=== PATIENT | male | born 1950 | race Caucasian/White ===

== ENCOUNTER → 2019-08-06 13:37 | Outpatient (CLI) | payer MEDICARE, OTHER, SELFPAY ==
[2019-08-06 14:21] LABS: Influenza A - CEPHEID Flu A NEGATIVE (NEGATIVE); Influenza B - CEPHEID Flu B NEGATIVE (NEGATIVE)
== END ==
PROVIDERS: Visit Provider Physician Assistant
DX: R05 Cough (principal)
CPT/HCPCS: 87502

== ENCOUNTER → 2021-04-26 16:31 | Outpatient (CLI) | payer MEDICARE, OTHER, SELFPAY ==
--- NOTE | 2021-04-26 16:38 | DI.RAD.S_ITS ---
PROCEDURE: XR HIP W PEL IF DONE RT 2V INDICATIONS: Right hip pain after accident TECHNIQUE: AP pelvis with lateral view(s) of the right hip(s). COMPARISON: None. FINDINGS: Bones: No fractures or dislocations. Pelvic ring appears intact. No suspicious bony lesions. Mild bilateral degenerative hip joint space narrowing. Minimal periarticular osteophytes are present. There is a small ossification adjacent to the lateral right acetabulum. Soft tissues: The visualized bowel gas pattern is normal. No suspicious soft tissue calcifications. IMPRESSION: Degenerative changes of the hips bilaterally. Small ossification is present adjacent to the right lateral acetabulum. This could represent trauma of indeterminate age or detached degenerative osteophyte. Recommend correlation to point tenderness. Dictated by: Millie Zabala M.D. on 04/26/2021 at 20:41 Approved by: Millie Zabala M.D. on 04/26/2021 at 20:42
== END ==
PROVIDERS: PCP Student in an Organized Health Care Education/Training Program; Referring Provider Student in an Organized Health Care Education/Training Program; Visit Provider Student in an Organized Health Care Education/Training Program
DX: M25.551 Pain in right hip (principal); G89.29 Other chronic pain
CPT/HCPCS: 73502

== ENCOUNTER → 2021-05-10 14:57 | Outpatient (CLI) | payer MEDICARE, OTHER, SELFPAY ==
[2021-05-10 15:48] LABS: Hematocrit 41.9 % (41-53); Hemoglobin 14.1 g/dL (13.5-17.5); Mean Corpuscular HGB Conc 33.7 % (30-36); Mean Corpuscular Hemoglobin 29.2 PG (26-34); Mean Corpuscular Volume 86.6 fL (80-100); Platelet Count 210 X10^3/uL (150-400); Red Blood Cell Count 4.84 X10^6/uL (4.5-5.9); Red Cell Distribution Width 14.2 % (11.6-14.8); White Blood Cell Count 5.2 X10^3/uL (4.5-11.0)
[2021-05-10 16:04] LABS: Appearance Urine UA CLEAR; Bilirubin Urine UA NEGATIVE (NEGATIVE); Color Urine UA YELLOW; Glucose Urine UA NEGATIVE (Negative); Ketones Urine UA NEGATIVE (NEGATIVE); Leukocyte Esterase Urine UA NEGATIVE (NEGATIVE); Nitrite Urine UA NEGATIVE (Negative); Occult Blood Urine UA NEGATIVE (Negative); Protein Urine UA NEGATIVE (Negative)
[2021-05-10 16:05] LABS: Bacteria Urine None Seen; RBC Urine None Seen (0-5/HPF); WBC Urine None Seen (0-5/HPF)
[2021-05-10 16:40] LABS: Prostate Specific Antigen Scrn 0.688 ng/mL (0.1-4.0)
== END ==
PROVIDERS: PCP Student in an Organized Health Care Education/Training Program; Referring Provider Student in an Organized Health Care Education/Training Program; Visit Provider Student in an Organized Health Care Education/Training Program
DX: R31.9 Hematuria, unspecified (principal); Z12.5 Encounter for screening for malignant neoplasm of prostate; D50.0 Iron deficiency anemia secondary to blood loss (chronic)
CPT/HCPCS: 36415; 81001; 85027; G0103

== ENCOUNTER → 2021-06-07 10:05 | Outpatient (CLI) | payer MEDICARE, OTHER, SELFPAY ==
[2021-06-07 11:33] LABS: COVID19 -Nasal RAPID Negative (Negative)
== END ==
PROVIDERS: PCP Student in an Organized Health Care Education/Training Program; Visit Provider Surgery
DX: Z20.822 Contact with and (suspected) exposure to COVID-19 (principal); Z01.812 Encounter for preprocedural laboratory examination
CPT/HCPCS: 87635; C9803

== ENCOUNTER 2021-06-08 07:38 | Day surgery (SDC) | payer MEDICARE, OTHER, SELFPAY ==
[2021-06-08 08:09] VITALS: BP 137/86; PULSE 62; RESP 20; TEMP 36.7; O2SAT 96; BMI 35.5
[2021-06-08] MEDS: LACTATED RINGERS 1,000 ML 125 ML IV (08:32)
--- NOTE | 2021-06-08 08:54 | PM.PREOP ---
Pre-operative Note COVID-19 COVID-19 status: Negative Result date/Date tested (Pos, Neg/Pending): 06/07/21 Interval Note History & Physical reviewed/Exam performed by Physician: Yes Changes to H&P: No ASA Class (for procedural sedation): II
[2021-06-08] MEDS: MIDAZOLAM 5 MG/5 ML VIAL IV (09:17)
[2021-06-08] MEDS: fentaNYL 250 MCG/5 ML INJ IV (09:17)
--- NOTE | 2021-06-08 09:40 | PM.OP.COLON ---
Operative Date/Time/Diagnoses Date of procedure: 06/08/21 Time of procedure: 09:41 Pre-op diagnosis: Rectal bleeding Post-op diagnosis: other (Diverticulosis) Procedure & Clinicians Study performed: Colonoscopy Same procedure as scheduled: Yes Indications: Rectal bleeding Surgeon: Julio C Malone Procedure Notes SCOAP/Timeout: Performed Procedure in detail: Impression: The patient was brought to the endoscopy suite, placed in left lateral decubitus position. The patient was connected to monitoring devices. A time-out was performed. Sedation was administered with Versed and fentanyl. Once the patient was adequately sedated, a digital rectal exam was performed and was normal. The scope was then inserted and advanced to the cecum where the appendiceal orifice was identified and photographed. The scope was then slowly withdrawn over greater than 6 minutes. Mucosa was thoroughly inspected. There were was pandiverticulosis with significant sigmoid diverticulosis. No polyps are noted. The scope was retroflexed in the rectum. Internal hemorrhoids were noted. The scope was straightened and removed. The patient was awakened and brought to recovery. EBL: 0 Sedation time 40 minutes. A total of 8 mg of Versed and 100 micro g of fentanyl was given. Scope withdrawal time: Greater than 6 minutes Sedation minutes: 40 Findings: divertiulosis Specimen(s): none sent Complications: none Post-procedure Recommendations: Colonoscopy in 10 years Disposition: PACU
[2021-06-08 09:42] VITALS: BP 143/77; PULSE 59; RESP 16; TEMP 36.6; O2SAT 94
[2021-06-08 09:46] VITALS: BP 139/87; PULSE 58; RESP 16; O2SAT 94
[2021-06-08 10:07] VITALS: BP 151/86; PULSE 55; RESP 14; TEMP 36.6; O2SAT 97
--- NOTE | 2021-06-08 10:18 | SUR.PHASEII ---
Ride called, initially not ready, returned call, pt ready to go, belly soft no nausea, steady when up. Left unit in stable condition.
== END 2021-06-08 10:20 | disposition home or self-care (01) ==
PROVIDERS: PCP Student in an Organized Health Care Education/Training Program; Referring Provider Surgery; Visit Provider Surgery
PROC: 0DJD8ZZ Inspection of Lower Intestinal Tract, Via Natural or Artificial Opening Endoscopic (ICD-10-PCS; CPT 45378; principal; 2021-06-08 08:45)
DX: K62.5 Hemorrhage of anus and rectum (principal); K57.30 Diverticulosis of large intestine without perforation or abscess without bleeding; K64.8 Other hemorrhoids
CPT/HCPCS: 45378; 99152; 99153; J2250; J3010

== ENCOUNTER → 2022-01-22 11:15 | Outpatient (CLI) | payer MEDICARE, OTHER, SELFPAY ==
[2022-01-22 12:31] LABS: Hematocrit 43.4 % (41-53); Hemoglobin 15.3 g/dL (13.5-17.5); Mean Corpuscular HGB Conc 35.2 % (30-36); Mean Corpuscular Hemoglobin 30.3 PG (26-34); Mean Corpuscular Volume 86.1 fL (80-100); Platelet Count 238 X10^3/uL (150-400); Red Blood Cell Count 5.03 X10^6/uL (4.5-5.9); Red Cell Distribution Width 13.2 % (11.6-14.8); White Blood Cell Count 4.9 X10^3/uL (4.5-11.0)
[2022-01-22 12:41] LABS: BUN Creatinine Ratio 25.3 (6-22); Blood Urea Nitrogen 21 mg/dL (9-20); Calcium 8.7 mg/dL (8.4-10.2); Carbon Dioxide 31 mmol/L (22-32); Chloride 103 mmol/L (98-107); Estimated Glomerular Filt Rate > 60 mL/min (>60); Glucose 100 mg/dL (80-110); HEMOLYSIS < 15 (0-50); Potassium 3.6 mmol/L (3.4-5.1); Sodium 140 mmol/L (137-145)
[2022-01-22 12:59] LABS: Vitamin D 25 Hydroxy (D3) 46.5 ng/mL (30.0-100.0)
== END ==
PROVIDERS: PCP Student in an Organized Health Care Education/Training Program; Referring Provider Student in an Organized Health Care Education/Training Program; Visit Provider Student in an Organized Health Care Education/Training Program
DX: I10 Essential (primary) hypertension (principal); E55.9 Vitamin D deficiency, unspecified; K62.5 Hemorrhage of anus and rectum
CPT/HCPCS: 36415; 80048; 82306; 85027

== ENCOUNTER → 2022-02-08 13:25 | Outpatient (CLI) | payer MEDICARE, OTHER, SELFPAY ==
[2022-02-09 03:26] LABS: Prostate Specific Antigen Scrn 0.773 ng/mL (0.1-4.0)
== END ==
PROVIDERS: PCP Student in an Organized Health Care Education/Training Program; Referring Provider Student in an Organized Health Care Education/Training Program; Visit Provider Student in an Organized Health Care Education/Training Program
DX: Z12.5 Encounter for screening for malignant neoplasm of prostate (principal); R35.0 Frequency of micturition
CPT/HCPCS: 36415; G0103

== ENCOUNTER → 2022-02-12 15:07 | Outpatient (CLI) | payer MEDICARE, OTHER, SELFPAY | PROVIDERS: PCP Student in an Organized Health Care Education/Training Program; Visit Provider Nurse Practitioner Family | DX: R30.0 Dysuria (principal) | CPT/HCPCS: 87077; 87086; 87186 ==

== ENCOUNTER → 2022-02-27 15:02 | Outpatient (CLI) | payer MEDICARE, OTHER, SELFPAY ==
[2022-02-27 17:52] LABS: Glucose Urine UA TRACE g/dL (Negative); Ketones Urine UA NEGATIVE (NEGATIVE); Leukocyte Esterase Urine UA 3+ (NEGATIVE); Nitrite Urine UA NEGATIVE (Negative); Occult Blood Urine UA 3+ (Negative); Protein Urine UA 2+ (Negative); Specific Gravity Urine UA 1.015 (1.000-1.035)
[2022-02-27 17:53] LABS: Appearance Urine UA CLOUDY; Color Urine UA ORANGE
[2022-02-27 18:04] LABS: Bilirubin Urine UA Negative (NEGATIVE); Ictotest Urine Negative (Negative)
[2022-02-27 18:05] LABS: Bacteria Urine Many (>30); Culture Indicated Urine Specimen Cultured; RBC Urine 5-10/HPF (0-5/HPF); Squamous Epithelial Cell Urine 0-1 /HPF (0-5/HPF); WBC Urine >100/HPF (0-5/HPF)
== END ==
PROVIDERS: PCP Student in an Organized Health Care Education/Training Program; Referring Provider Student in an Organized Health Care Education/Training Program; Visit Provider Student in an Organized Health Care Education/Training Program
DX: R31.9 Hematuria, unspecified (principal); R35.0 Frequency of micturition
CPT/HCPCS: 81001; 87077; 87086; 87186

== ENCOUNTER → 2022-11-12 14:32 | Outpatient (CLI) | payer MEDICARE, OTHER, SELFPAY ==
[2022-11-12 14:47] LABS: Appearance Urine UA CLEAR; Bilirubin Urine UA NEGATIVE (NEGATIVE); Color Urine UA YELLOW; Glucose Urine UA NEGATIVE (Negative); Ketones Urine UA NEGATIVE (NEGATIVE); Leukocyte Esterase Urine UA 1+ (NEGATIVE); Nitrite Urine UA NEGATIVE (Negative); Occult Blood Urine UA NEGATIVE (Negative); Protein Urine UA NEGATIVE (Negative); Specific Gravity Urine UA 1.015 (1.000-1.035)
[2022-11-12 14:49] LABS: Bacteria Urine None Seen; Culture Indicated Urine Specimen Cultured; RBC Urine None Seen (0-5/HPF); Squamous Epithelial Cell Urine 0-1 /HPF (0-5/HPF); WBC Urine 5-10/HPF (0-5/HPF)
== END ==
PROVIDERS: PCP Student in an Organized Health Care Education/Training Program; Referring Provider Student in an Organized Health Care Education/Training Program; Visit Provider Student in an Organized Health Care Education/Training Program
DX: R39.9 Unspecified symptoms and signs involving the genitourinary system (principal)
CPT/HCPCS: 81001; 87077; 87086; 87186

== ENCOUNTER → 2022-12-19 10:15 | Outpatient (CLI) | payer MEDICARE, OTHER, SELFPAY ==
[2022-12-19 11:13] LABS: Add Manual Diff / Slide Review NO; Basophils Absolute Auto 0 /uL (0-100); Basophils Percent Auto 0.8 % (0-2); Eosinophils Absolute Auto 300 /uL (0-450); Eosinophils Percent Auto 5.7 % (2-4); Hemoglobin 13.9 g/dL (13.5-17.5); Lymphocytes Absolute Auto 1400 /uL (1100-4500); Lymphocytes Percent Auto 30.4 % (25-40); Mean Corpuscular HGB Conc 34.8 % (30-36); Mean Corpuscular Hemoglobin 30.3 PG (26-34); Mean Corpuscular Volume 86.8 fL (80-100); Monocytes Absolute Auto 300 /uL (0-900); Monocytes Percent Auto 6.8 % (3-14); Neutrophils Absolute Auto 2600 /uL (1500-7000); Neutrophils Percent Auto 56.3 % (50-75); Platelet Count 193 X10^3/uL (150-400); Red Blood Cell Count 4.61 X10^6/uL (4.5-5.9); White Blood Cell Count 4.5 X10^3/uL (4.5-11.0)
[2022-12-19 11:41] LABS: Alanine Aminotransferase 26 IU/L (<50); Albumin Globulin Ratio 1.3 (1.0-2.8); Alkaline Phosphatase 111 U/L (38-126); Aspartate Aminotransferase 22 IU/L (17-59); BUN Creatinine Ratio 23.5 (6-22); Bilirubin Total 0.6 mg/dL (0.2-1.3); Blood Urea Nitrogen 19 mg/dL (9-20); Calcium 8.7 mg/dL (8.4-10.2); Carbon Dioxide 32 mmol/L (22-32); Chloride 101 mmol/L (98-107); Cholesterol 142 mg/dL (140-199); Estimated Glomerular Filt Rate > 60 mL/min (>60); Globulin 3.1 g/dL (1.7-4.1); Glucose 106 mg/dL (80-110); HDL Cholesterol 40 mg/dL (40-60); HEMOLYSIS < 15 (0-50); LDL Cholesterol Calculated 84 mg/dL (<100); Potassium 3.6 mmol/L (3.4-5.1); Sodium 141 mmol/L (137-145); Total Protein 7.1 g/dL (6.3-8.2); Triglycerides 91 mg/dL (35-150)
[2022-12-19 12:09] LABS: Prostate Specific Antigen Scrn 0.901 ng/mL (0.1-4.0)
[2022-12-19 16:38] LABS: Hep C Virus Ab w/Reflex Quant NEGATIVE s/c (NEGATIVE)
== END ==
PROVIDERS: PCP Student in an Organized Health Care Education/Training Program; Referring Provider Student in an Organized Health Care Education/Training Program; Visit Provider Student in an Organized Health Care Education/Training Program
DX: D50.0 Iron deficiency anemia secondary to blood loss (chronic) (principal); E78.2 Mixed hyperlipidemia; Z12.5 Encounter for screening for malignant neoplasm of prostate; E55.9 Vitamin D deficiency, unspecified; I10 Essential (primary) hypertension; Z11.59 Encounter for screening for other viral diseases
CPT/HCPCS: 36415; 80053; 80061; 85025; 86803; G0103

== ENCOUNTER → 2023-01-14 13:49 | Outpatient (CLI) | payer MEDICARE, OTHER, SELFPAY ==
[2023-01-14 15:08] LABS: Appearance Urine UA CLEAR; Bilirubin Urine UA NEGATIVE (NEGATIVE); Color Urine UA YELLOW; Glucose Urine UA NEGATIVE (Negative); Ketones Urine UA NEGATIVE (NEGATIVE); Leukocyte Esterase Urine UA 1+ (NEGATIVE); Nitrite Urine UA NEGATIVE (Negative); Occult Blood Urine UA NEGATIVE (Negative); Protein Urine UA NEGATIVE (Negative)
[2023-01-14 15:15] LABS: TSH w/ Reflex to FT4 1.65 uIU/mL (0.47-4.68)
[2023-01-14 15:20] LABS: Prostate Specific Antigen Scrn 1.11 ng/mL (0.1-4.0)
[2023-01-14 15:24] LABS: Bacteria Urine Many (>30); Culture Indicated Urine Specimen Cultured; RBC Urine 0-1/HPF (0-5/HPF); Squamous Epithelial Cell Urine 0-1 /HPF (0-5/HPF); WBC Urine 10-30/HPF (0-5/HPF)
== END ==
PROVIDERS: PCP Pediatrics; Referring Provider Pediatrics; Visit Provider Pediatrics
DX: Z12.5 Encounter for screening for malignant neoplasm of prostate (principal); R35.0 Frequency of micturition; Z87.440 Personal history of urinary (tract) infections
CPT/HCPCS: 36415; 81001; 84443; 87077; 87086; 87186; G0103

== ENCOUNTER → 2023-02-21 17:09 | Outpatient (CLI) | payer MEDICARE, OTHER, SELFPAY ==
[2023-02-21 17:35] LABS: Appearance Urine UA CLEAR; Bilirubin Urine UA NEGATIVE (NEGATIVE); Color Urine UA YELLOW; Glucose Urine UA NEGATIVE (Negative); Ketones Urine UA NEGATIVE (NEGATIVE); Leukocyte Esterase Urine UA 1+ (NEGATIVE); Nitrite Urine UA NEGATIVE (Negative); Occult Blood Urine UA TRACE-INTACT (Negative); Protein Urine UA NEGATIVE (Negative)
[2023-02-21 17:56] LABS: Bacteria Urine Moderate (10-30); Culture Indicated Urine Specimen Cultured; RBC Urine 0-1/HPF (0-5/HPF); Squamous Epithelial Cell Urine 1-5 /HPF (0-5/HPF); WBC Urine 5-10/HPF (0-5/HPF)
== END ==
PROVIDERS: PCP Pediatrics; Referring Provider Pediatrics; Visit Provider Pediatrics
DX: R30.0 Dysuria (principal)
CPT/HCPCS: 81001; 87077; 87086; 87186

== ENCOUNTER → 2024-01-07 16:11 | Outpatient (CLI) | payer MEDICARE, OTHER, SELFPAY ==
[2024-01-07 21:35] LABS: Appearance Urine UA CLOUDY; Bilirubin Urine UA NEGATIVE (NEGATIVE); Color Urine UA YELLOW; Glucose Urine UA NEGATIVE (Negative); Ketones Urine UA NEGATIVE (NEGATIVE); Leukocyte Esterase Urine UA TRACE (NEGATIVE); Nitrite Urine UA NEGATIVE (Negative); Occult Blood Urine UA NEGATIVE (Negative); Protein Urine UA NEGATIVE (Negative); Specific Gravity Urine UA 1.015 (1.000-1.035)
[2024-01-07 21:46] LABS: Urine Volume 10mL (spun)
[2024-01-07 21:47] LABS: Bacteria Urine Moderate (10-30); Culture Indicated Urine Cult Not Indicated; RBC Urine None Seen (0-5/HPF); Squamous Epithelial Cell Urine 0-1 /HPF (0-5/HPF); WBC Urine 5-10/HPF (0-5/HPF)
== END ==
PROVIDERS: PCP Student in an Organized Health Care Education/Training Program; Visit Provider Student in an Organized Health Care Education/Training Program
DX: N39.0 Urinary tract infection, site not specified (principal)
CPT/HCPCS: 81001; 87077; 87086; 87186

== ENCOUNTER → 2024-02-20 09:51 | Outpatient (CLI) | payer MEDICARE, OTHER, SELFPAY | PROVIDERS: PCP Student in an Organized Health Care Education/Training Program; Referring Provider Urology; Visit Provider Urology | DX: R39.9 Unspecified symptoms and signs involving the genitourinary system (principal) | CPT/HCPCS: 87086 ==

== ENCOUNTER → 2024-02-20 12:04 | Outpatient (CLI) | payer MEDICARE, OTHER, SELFPAY ==
[2024-02-20 13:57] LABS: BUN Creatinine Ratio 28.4 (6-22); Blood Urea Nitrogen 29 mg/dL (9-20); Calcium 9.1 mg/dL (8.4-10.2); Carbon Dioxide 31 mmol/L (22-32); Chloride 103 mmol/L (98-107); Estimated Glomerular Filt Rate > 60 mL/min (>60); Glucose 91 mg/dL (80-110); HEMOLYSIS < 15 (0-50); Potassium 3.3 mmol/L (3.4-5.1); Sodium 143 mmol/L (137-145)
== END ==
PROVIDERS: PCP Student in an Organized Health Care Education/Training Program; Referring Provider Urology; Visit Provider Urology
DX: N39.0 Urinary tract infection, site not specified (principal); R39.9 Unspecified symptoms and signs involving the genitourinary system
CPT/HCPCS: 36415; 80048; 87086

== ENCOUNTER → 2024-02-24 09:51 | Outpatient (CLI) | payer MEDICARE, OTHER, SELFPAY ==
--- NOTE | 2024-02-24 | DI.CT.S_ITS ---
PROCEDURE: CT ABDOMEN PELVIS WO/W CON INDICATIONS: Urinary tract infection, site not specified TECHNIQUE: Optional 5 mm thick noncontrast images acquired from the diaphragm to the symphysis pubis. After the administration of intravenous contrast, 5 mm thick images acquired from the diaphragm to the symphysis pubis after a 10-minute delay. 2 mm thick coronal and sagittal reformats were then performed of the kidneys and ureters. For radiation dose reduction, the following was used: automated exposure control, adjustment of mA and/or kV according to patient size. COMPARISON: None. FINDINGS: Image quality: Diagnostic. Kidneys and Ureters: Both kidneys are normal in size, without hydronephrosis. Single, punctate, nonobstructing right-sided nephrolithiasis. No complex renal cystic lesions which require follow-up. No perinephric fat stranding. There is normal bilateral renal enhancement. Renal calyces appear normal in morphology when filled with contrast. Opacified portions of both ureters demonstrate normal caliber Bladder: Bladder wall thickness is normal. No calcified bladder stones. Submucosal fat deposition within the anterior bladder wall. OTHER: Lower chest: Unremarkable. Liver: No solid mass. Gallbladder: No radiopaque gallstones or wall thickening. Biliary ducts: No biliary dilation. Pancreas: No ductal dilation. Spleen: Size is within normal limits. Adrenal Glands: No adrenal nodules. Stomach and Bowel: Mild focal wall thickening of the sigmoid colon, in the presence of diverticula. Normal appendix. Peritoneum: No abnormal intraperitoneal fluid. No free air. Ventral Wall: Small umbilical hernia containing fat. Abdominal Nodes: No retroperitoneal or mesenteric adenopathy by size criteria. Vessels: Aorta and inferior vena cava are normal in size. PELVIS: Pelvic Organs: Unremarkable. Pelvic Nodes: No enlarged lymph nodes. Miscellaneous: Small left inguinal hernia containing fat. Bones: No aggressive osseous abnormality. Degenerative disc disease of the lumbar spine. IMPRESSION: Single, punctate, nonobstructing right-sided nephrolithiasis. No additional filling defects within the opacified renal collecting system or ureters. Chronic or subacute diverticulitis of the sigmoid colon. No evidence of perforation. Dictated by: Gian Lopez M.D. on 02/24/2024 at 13:55 Approved by: Gian Lopez M.D. on 02/24/2024 at 14:02
== END ==
PROVIDERS: PCP Student in an Organized Health Care Education/Training Program; Referring Provider Urology; Visit Provider Urology
DX: N39.0 Urinary tract infection, site not specified (principal); N20.0 Calculus of kidney; K57.30 Diverticulosis of large intestine without perforation or abscess without bleeding; K40.90 Unilateral inguinal hernia, without obstruction or gangrene, not specified as recurrent; K42.9 Umbilical hernia without obstruction or gangrene; M51.36 Other intervertebral disc degeneration, lumbar region
CPT/HCPCS: 74178; Q9967

== ENCOUNTER → 2024-03-02 15:20 | Outpatient (CLI) | payer MEDICARE, OTHER, SELFPAY | PROVIDERS: PCP Student in an Organized Health Care Education/Training Program; Visit Provider Urology | DX: N39.0 Urinary tract infection, site not specified (principal); N40.1 Benign prostatic hyperplasia with lower urinary tract symptoms; R39.9 Unspecified symptoms and signs involving the genitourinary system | CPT/HCPCS: 51798; 52000; 81002; 87086 ==

== ENCOUNTER → 2024-04-23 09:17 | Outpatient (CLI) | payer MEDICARE, OTHER, SELFPAY | PROVIDERS: PCP Student in an Organized Health Care Education/Training Program; Visit Provider Urology | DX: R39.9 Unspecified symptoms and signs involving the genitourinary system (principal) | CPT/HCPCS: 87077; 87086 ==

== ENCOUNTER → 2024-06-05 12:54 | Outpatient (CLI) | payer MEDICARE, OTHER, SELFPAY ==
[2024-06-05 14:47] LABS: Add Manual Diff / Slide Review NO; Basophils Absolute Auto 0 /uL (0-100); Basophils Percent Auto 0.9 % (0-2); Eosinophils Absolute Auto 100 /uL (0-450); Eosinophils Percent Auto 2.8 % (2-4); Hematocrit 42.2 % (41-53); Hemoglobin 14.6 g/dL (13.5-17.5); Lymphocytes Absolute Auto 1400 /uL (1100-4500); Lymphocytes Percent Auto 28.3 % (25-40); Mean Corpuscular HGB Conc 34.7 % (30-36); Mean Corpuscular Hemoglobin 29.8 PG (26-34); Monocytes Absolute Auto 300 /uL (0-900); Monocytes Percent Auto 7.1 % (3-14); Neutrophils Absolute Auto 2900 /uL (1500-7000); Neutrophils Percent Auto 60.9 % (50-75); Platelet Count 228 X10^3/uL (150-400); Red Blood Cell Count 4.91 X10^6/uL (4.5-5.9); Red Cell Distribution Width 15.3 % (11.6-14.8); White Blood Cell Count 4.8 X10^3/uL (4.5-11.0)
[2024-06-05 14:53] LABS: Hemoglobin A1C% w Est Avg Glu 5.2 % (4.0-6.0)
[2024-06-05 15:06] LABS: Alanine Aminotransferase 25 IU/L (<50); Albumin Globulin Ratio 1.2 (1.0-2.8); Alkaline Phosphatase 112 U/L (38-126); Aspartate Aminotransferase 23 IU/L (17-59); Bilirubin Total 0.9 mg/dL (0.2-1.3); Blood Urea Nitrogen 18 mg/dL (9-20); Calcium 9.2 mg/dL (8.4-10.2); Carbon Dioxide 34 mmol/L (22-32); Chloride 97 mmol/L (98-107); Cholesterol 130 mg/dL (140-199); Estimated Glomerular Filt Rate > 60 mL/min (>60); Globulin 3.3 g/dL (1.7-4.1); Glucose 98 mg/dL (80-110); HDL Cholesterol 34 mg/dL (40-60); HEMOLYSIS < 15 (0-50); LDL Cholesterol Calculated 77 mg/dL (<100); Magnesium 1.9 mg/dL (1.6-2.3); Potassium 3.3 mmol/L (3.4-5.1); Sodium 138 mmol/L (137-145); Total Protein 7.3 g/dL (6.3-8.2); Triglycerides 94 mg/dL (35-150)
[2024-06-05 15:36] LABS: TSH w/ Reflex to FT4 1.61 uIU/mL (0.47-4.68)
== END ==
PROVIDERS: PCP Student in an Organized Health Care Education/Training Program; Referring Provider Internal Medicine Cardiovascular Disease; Visit Provider Internal Medicine Cardiovascular Disease
DX: R55 Syncope and collapse (principal); Z13.1 Encounter for screening for diabetes mellitus; E78.5 Hyperlipidemia, unspecified; I10 Essential (primary) hypertension
CPT/HCPCS: 36415; 80053; 80061; 83036; 83735; 84443; 85025

== ENCOUNTER → 2024-07-17 13:34 | Outpatient (CLI) | payer MEDICARE, OTHER, SELFPAY ==
--- NOTE | 2024-07-17 15:01 | DI.ECHO.S_ITS ---
[facility] : : [address] : : [place] : : [id number] : : Phone: [phone] Echocardiogram Report + + :Name: LORI DOWNS III Study Date: 07/17/2024 Height: 74 in : :[facility] ReadingLocation: Weight: 252 lb : : Gender: Male BSA: 2.4 m2 : :: 1950 Age: 73 yrs BP: 177/105 mmHg: :Reason For Study: syncope : :Ordering Physician: MARBIN, : :JAZZ Miramontes Performed By: Lia Gee : :Referring: JAZZ ZAZUETA : + + Interpretation Summary Hypertension. There is mild concentric left ventricular hypertrophy. The ejection fraction is estimated to be 45-50%. There is hypokinesis of the distal anterior, distal anteroseptal, apical and distal inferolateral basilio. Grade II diastolic dysfunction. The left atrium is moderately dilated. The right ventricle is normal in size and function. There is mild mitral regurgitation. Pulmonary artery pressures cannot be estimated because of the lack of a measurable TR jet velocity but the IVC suggests a CVP of around 3 mmHg. The ascending aorta is mildly enlarged, 4.0 cm. Procedure: A two-dimensional transthoracic echocardiogram with color flow and Doppler was performed. The study quality was technically adequate. There is no prior echocardiogram noted for this patient. The patient was in sinus rhythm with heart rates between 57-68 bpm during the exam. Left Ventricle: The left ventricle is normal in size. There is mild concentric left ventricular hypertrophy. The ejection fraction is estimated to be 45-50%. There is hypokinesis of the distal anterior, distal anteroseptal, apical and distal inferolateral basilio. Diastolic parameters suggest a pseudonormalization pattern, consistent with probable elevated filling pressures. Right Ventricle: The right ventricle is normal in size and function. Atria: The left atrium is moderately dilated. Right atrial size is normal. The interatrial septum bows toward right atrium consistent with elevated left atrial pressure. Mitral Valve: The mitral valve leaflets appear mildly thickened, but open well. There is mild mitral annular calcification. There is no mitral valve stenosis. There is mild mitral regurgitation. Aortic Valve: The aortic valve is trileaflet. The aortic valve opens well. There is no aortic valve stenosis. There is trace aortic regurgitation. Tricuspid Valve: The tricuspid valve is normal. There is a trace or physiologic amount of tricuspid regurgitation. Pulmonary artery pressures cannot be estimated because of the lack of a measurable TR jet velocity but the IVC suggests a CVP of around 3 mmHg. Pulmonic Valve: The pulmonic valve is not well seen, but is grossly normal. There is a trace or physiologic amount of pulmonic regurgitation. Great Vessels: The aortic root is normal size. The ascending aorta is mildly enlarged. The aortic arch is normal in size. The pulmonary artery is normal size. The IVC is of normal diameter and collapses greater than 50% with a sniff. This suggests a low right atrial pressure of 3 mm Hg. Pericardium/ Pleura There is no pericardial effusion. MMode/2D Measurements & Calculations LVIDd: 5.1 cm LVOT diam: 2.3 cm LVIDs: 3.7 cm Ao root diam: 3.9 cm FS: 26.6 % asc Aorta Diam: 4.0 cm EPSS: 0.54 cm Ao Arch Diam (Prox Trans): 2.4 cm IVSd: 1.2 cm LVPWd: 1.2 cm LV chapman. diameter/BSA (cm/m^2): 2.1 LV sys. diameter/BSA (cm/m^2): 1.6 LA A2 area: 30.1 cm2 RA long axis: 5.5 cm LA A4 area: 31.0 cm2 RA area: 20.0 cm2 LA length (vol): 7.4 cm RA vol: 61.9 ml LA vol: 107.1 ml RA : 25.8 ml/m2 LA vol index: 44.7 ml/m2 IVC diam: 0.99 cm TAPSE: 3.0 cm Doppler Measurements & Calculations Ao V2 max: 122.4 cm/sec LVOT Max Kyle: 81.8 cm/sec Ao V2 mean: 82.0 cm/sec LV V1 max P.7 mmHg Ao max P.0 mmHg LV V1 VTI: 19.1 cm Ao mean P.1 mmHg RENZO(I,D): 2.8 cm2 Ao V2 VTI: 29.3 cm RENZO(V,D): 2.8 cm2 sev ratio: 0.65 RENZO indexed to BSA (cm^2/m^2): 1.2 MV E max kyle: 83.8 cm/sec TR max kyle: 215.2 cm/sec MV A max kyle: 67.9 cm/sec TR max P.5 mmHg MV E/A: 1.2 PA V2 max: 53.6 cm/sec Med Peak E' Kyle: 3.8 cm/sec PA V2 mean: 41.8 cm/sec E/E' med: 21.9 PA mean P.76 mmHg Lat Peak E' Kyle: 4.8 cm/sec PA pr(Accel): 22.5 mmHg E/E' lat: 17.3 E/e' average: 19.6 MV dec time: 0.22 sec MVA(VTI): 2.5 cm2 MV V2 mean: 57.7 cm/sec SV(LVOT): 81.0 ml MV mean P.5 mmHg MV V2 VTI: 31.8 cm Reading Physician:04:13 PM
--- NOTE | 2024-07-20 18:54 | DI.NM.S_ITS ---
DATE OF SERVICE: 07/17/2024 NUCLEAR CARDIOLOGY MYOCARDIAL PERFUSION STUDY PROCEDURE: Pharmacologic vasodilator stress and rest myocardial perfusion imaging with gating to assess ejection fraction and regional wall motion. ORDERING PROVIDER: Jazz Perez M.D. INDICATIONS: The patient is a 73-year-old male with a history of nausea, vomiting, and syncope and an abnormal ECG. CARDIAC STRESS: Per protocol, 0.4 mg of regadenoson was infused with a normal heart rate response to exercise although a somewhat blunted blood pressure response. With this, he developed minimal dyspnea but no chest discomfort. His resting ECG shows sinus rhythm with possible inferior Q-waves and nonspecific ST abnormalities in the anterolateral leads. With stress, there are no significant ST-segment shifts or arrhythmias. Per protocol, 24.5 millicuries of technetium-99m Myoview was injected and he was imaged 15 minutes later using a gated SPECT acquisition protocol. Three days prior while at rest, he had been injected with 27.0 millicuries of technetium-99m Myoview and was imaged 15 minutes later, again using a gated SPECT acquisition protocol. FINDINGS: 1. Raw data: There is fairly good myocardial tracer uptake. The lung/heart ratio is normal at 0.35 with a normal TID ratio of 0.87. 2. Quantitated gated SPECT: Post-stress ejection fraction is 59% with possible subtle hypokinesis at the base of the inferior and inferolateral wall but with normal contractility elsewhere. The resting ejection fraction is 64% with an identical contraction pattern and moderately increased left ventricular volumes with a resting end-diastolic volume of 153 mL. 3. Myocardial perfusion imaging: Post-stress supine images show a [id number] perfusion defect in the proximal and mid inferior wall in a pattern that could be consistent with diaphragmatic attenuation, although a subtle defect remains persistent in the proximal portion of the inferior wall on the prone images. The distal portion of the inferolateral wall appears normal on the prone images. The resting images show a similar perfusion pattern to that of the post-stress supine images at the base but with some improvement in the more distal portion of the inferior defect compared to the post-stress supine images. IMPRESSION: 1. Probable abnormal myocardial perfusion study. 2. Mild, predominantly fixed, but slightly reversible perfusion defect in the proximal to mid inferior wall that resolves distally on the prone images, suggesting some diaphragmatic attenuation but with a persistent defect in the proximal portion of the inferior wall, suggesting a possible true perfusion defect with a previous nontransmural infarction with possible mild sarai-infarct ischemia, but if present, the volume of ischemia is small. Diaphragmatic attenuation could also be responsible for the defects seen. 3. Moderately enlarged left ventricular volumes with preserved systolic function but with possible hypokinesis at the base of the inferior wall, consistent with previous infarction. 4. No angina or ECG evidence of ischemia with pharmacologic vasodilator stress. There were no arrhythmias. Duke Ledbetter III - KYE/sonia/JOSHUA doc#: [id number]/job#: [id number] dd: 07/20/2024 17:30:00 dt: 07/20/2024 18:07:00 DICTATING MD/COPIES TO: Thanh Piña MD; Jazz Perez M.D. COPIES MNE: ALIS;
== END ==
PROVIDERS: Family Provider Student in an Organized Health Care Education/Training Program; PCP Student in an Organized Health Care Education/Training Program; Referring Provider Internal Medicine Cardiovascular Disease; Visit Provider Internal Medicine Cardiovascular Disease
DX: I34.81 Nonrheumatic mitral (valve) annulus calcification (principal); I34.0 Nonrheumatic mitral (valve) insufficiency; R94.31 Abnormal electrocardiogram [ECG] [EKG]; R55 Syncope and collapse; I77.89 Other specified disorders of arteries and arterioles
CPT/HCPCS: 78452; 93017; 93306; A9502; J2785

== ENCOUNTER → 2024-07-31 09:46 | Outpatient (CLI) | payer MEDICARE, OTHER, SELFPAY ==
[2024-07-31 10:23] LABS: BUN Creatinine Ratio 21.7 (6-22); Blood Urea Nitrogen 26 mg/dL (9-20); Calcium 8.8 mg/dL (8.4-10.2); Carbon Dioxide 35 mmol/L (22-32); Chloride 102 mmol/L (98-107); Estimated Glomerular Filt Rate > 60 mL/min (>60); Glucose 106 mg/dL (80-110); HEMOLYSIS < 15 (0-50); Potassium 3.3 mmol/L (3.4-5.1); Sodium 138 mmol/L (137-145)
== END ==
PROVIDERS: Family Provider Student in an Organized Health Care Education/Training Program; PCP Student in an Organized Health Care Education/Training Program; Referring Provider Internal Medicine Cardiovascular Disease; Visit Provider Internal Medicine Cardiovascular Disease
DX: I10 Essential (primary) hypertension (principal)
CPT/HCPCS: 36415; 80048

== ENCOUNTER → 2024-08-06 15:23 | Outpatient (CLI) | payer MEDICARE, OTHER, SELFPAY ==
[2024-08-06 17:01] LABS: Appearance Urine UA CLEAR; Bilirubin Urine UA NEGATIVE (NEGATIVE); Color Urine UA YELLOW; Glucose Urine UA NEGATIVE (Negative); Ketones Urine UA NEGATIVE (NEGATIVE); Leukocyte Esterase Urine UA TRACE (NEGATIVE); Nitrite Urine UA NEGATIVE (Negative); Occult Blood Urine UA NEGATIVE (Negative); Protein Urine UA NEGATIVE (Negative); Specific Gravity Urine UA 1.025 (1.000-1.035); pH Urine UA 5.5 (4.5-8.0)
[2024-08-06 17:08] LABS: Bacteria Urine Few (2-10); RBC Urine 0-1/HPF (0-5/HPF); Squamous Epithelial Cell Urine 0-1 /HPF (0-5/HPF); Urine Volume 10mL (spun); WBC Urine 1-5/HPF (0-5/HPF)
[2024-08-06 17:09] LABS: Culture Indicated Urine Cult Not Indicated; Mucus Urine 1+ (Negative)
== END ==
PROVIDERS: Family Provider Student in an Organized Health Care Education/Training Program; PCP Student in an Organized Health Care Education/Training Program; Referring Provider Urology; Visit Provider Urology
DX: N30.01 Acute cystitis with hematuria (principal); N41.9 Inflammatory disease of prostate, unspecified; Z87.440 Personal history of urinary (tract) infections
CPT/HCPCS: 81001; 81002

== ENCOUNTER → 2024-09-14 11:07 | Outpatient (CLI) | payer MEDICARE, OTHER, SELFPAY ==
[2024-09-14 11:56] LABS: BUN Creatinine Ratio 19.8 (6-22); Blood Urea Nitrogen 20 mg/dL (9-20); Calcium 9.4 mg/dL (8.4-10.2); Carbon Dioxide 30 mmol/L (22-32); Chloride 102 mmol/L (98-107); Estimated Glomerular Filt Rate > 60 mL/min (>60); Glucose 95 mg/dL (80-110); HEMOLYSIS < 15 (0-50); Potassium 4.2 mmol/L (3.4-5.1); Sodium 139 mmol/L (137-145)
== END ==
PROVIDERS: Family Provider Student in an Organized Health Care Education/Training Program; PCP Student in an Organized Health Care Education/Training Program; Referring Provider Internal Medicine Cardiovascular Disease; Visit Provider Internal Medicine Cardiovascular Disease
DX: I10 Essential (primary) hypertension (principal)
CPT/HCPCS: 36415; 80048

== ENCOUNTER 2024-09-30 10:45 | Outpatient (RCR) | payer MEDICARE, OTHER, SELFPAY ==
--- NOTE | 2024-07-16 12:59 | PT.OIE ---
Current Diagnoses Benign paroxysmal vertigo, left ear (07/16/24) Dizziness and giddiness (07/16/24) Past Medical History (Last Updated 07/09/24 @ 13:32 by Stanley Guzman MD) Allergies (~1950) Asthma (~1950) Back disorder (~1993) Benign prostatic hyperplasia with lower urinary tract symptoms Cataracts, bilateral (~2018) Cervical spine disease (~1991) Chronic back pain (~1991) GERD (gastroesophageal reflux disease) (~1969) History of depression History of diverticulitis History of kidney stones History of recurrent urinary tract infection History of UTI Hx of chronic arthritis Hx of iron deficiency anemia Hx of skin cancer, basal cell Hypertension (~1968) Internal bleeding hemorrhoids Kidney stones (~2000) Migraines (~1991) Obesity (BMI 35.0-39.9 without comorbidity) Prostatitis PTSD (post-traumatic stress disorder) (~1969) Recurrent sinusitis (~1959) Recurrent urinary tract infection Rosacea (~1984) Secondhand smoke exposure Sigmoid diverticulosis Skin cancer (~2013) Sleep apnea (~1996) Spine pain, lumbar (~1991) Urinary frequency Vertigo (~2009) Past Surgical History (Last Updated 02/20/24 @ 09:39 by Christine Joiner RN) Anesthesia History of hip surgery (~2018) Hx of circumcision Hx of vasectomy Visit Care Team Role Provider Type Vicenta Chowdhury MD Attending Provider Physician Family Provider Primary Care Provider Referring Provider Specialty: Family Practice Obstetrics Address: [address] [place] [address] Email: [email or web address] Physical Therapy Initial Evaluation PT-OP-A Visit Information Start: 07/16/24 12:47 Freq: Status: Active Protocol: Document 07/16/24 10:45 DCW (Rec: 07/16/24 12:59 DCW [id number]) Out-Patient Physical Therapy Visit Information Visit Information Visit Type Initial Evaluation Visit Start Time 10:45 Visit Stop Time 11:30 Visit Number 1 Number of IMPREGNATING MACHINE OPERATOR Visits 0 Evaluation Information Evaluation Date 07/16/24 PT-OP-B Current Condition Start: 07/16/24 12:47 Freq: Status: Active Protocol: Document 07/16/24 10:45 DCW (Rec: 12/12/24 12:59 DCW [id number]) Current Condition History of Current Condition Onset Date 05/14/24 Current Complaints Positional dizziness History of Current Condition Pt is a 73 year old male complaining of a two month history of motion-induced vertigo, beginning following a fall off a stool which caused him to hit his head on the floor. Pt reports episodes last 30-60 seconds. Symptoms are provoked by bed mobility, looking up at stars, putting in eye drops, or quick head movements. Pt denies recent hearing changes, tinnitus, diplopia, dysarthria, discoordination, or decreased mentation/consciousness. Pt reports symptoms are waxing/ waning in nature. Pt denies hx of hyperlipidemia, diabetes, arrhythmia, seizure, migraines , back/neck problems, CVA, anxiety/panic disorders, depression, or excessive smoking or drinking. Treatment Goals Patient/Caregiver Goals eliminate dizziness PT-OP-C Subjective Start: 07/16/24 12:47 Freq: Status: Active Protocol: Document 07/16/24 10:45 DCW (Rec: 07/16/24 12:59 DCW [id number]) OP-PT Subjective Patient Comments Patient Comments I can't even look up at the stars anymore. Patient Questionnaires Dizziness Handicap Inventory DHI Score 80% DHI Functional Impairment 80 to 99% Impaired (Score 80- 99) Other Questionnaire Name and Score Falls Efficacy Scale - International: 42/64 PT-OP-O Vestibular Start: 07/16/24 12:47 Freq: Status: Active Protocol: Document 07/16/24 10:45 DCW (Rec: 07/16/24 12:59 DCW [id number]) Vestibular Assessment Auditory Tests Blanco Test Lateralizes right Rinne Test Positive Air Conduction Results Right Greater Visual Testing Smooth Pursuits Horizontal WNL Smooth Pursuits Vertical WNL Saccades Horizontal Mild corrective saccade when moving L Heave Test Positive Bilateral Thrust Head Positive Bilateral Positional Testing Tres-Hallpike Positive Left,Upbeating,< 60 Seconds PT-OP-Q Treatments Start: 07/16/24 12:47 Freq: Status: Active Protocol: Document 07/16/24 10:45 DCW (Rec: 07/16/24 12:59 DCW [id number]) Canalithic Repositioning BPPV Treatment Rikki Affected Canal(s) Left posterior Reps x2 Comments Modified Rikki PT-OP-T Assessment and Plan Start: 07/16/24 12:47 Freq: Status: Active Protocol: Document 07/16/24 10:45 DCW (Rec: 07/16/24 12:59 DCW [id number]) Physical Therapy Assessment Rehab Potential Rehabilitation Potential Excellent Evaluation Complexity Number of Personal Factors/Comorbidities 3 or More Number of Body Systems Impaired 4 or More Clinical Presentation at Evaluation Unstable Impairments Impairments Balance,Functional Activities, Functional Mobility,Vestibular Goals Two Impairment Positive left Tres-Hallpike Lockstitch Zipper Setter Goal (LTG) Pt to present with negative positional testing bilaterally LTG Duration 08/16/24 One Impairment Pt experiences dizziness with positional changes Custodial Goal (LTG) Pt to report ability to perform bed mobility without vertiginous symptoms LTG Duration 08/16/24 Assessment Summary Assessment During left [place]-Hallpike test, pt complained of vertigo and demonstrated up-beating, torsional nystagmus lasting approximately 15 seconds, consistent with diagnosis of left-sided posterior canal BPPV, canalithiasis-type. Pt was treated with a left-sided modified Rikki maneuver. Pt complained of symptoms in the first and third position, which is normally indicative of a successful treatment. Further positional testing was negative. Pt was educated on BPPV, expectations for treatment, possible recurrence (BPPV has a ~50% recurrence rate in the five years following treatment), and post -Rikki restrictions. Pt to return in ~1 week for a follow -up appointment, and intermittently afterward as indicated for treatment of BPPV. Physical Therapy Plan Frequency and Duration Frequency of Treatment 2x/Week Plan of Care Start Date 07/16/24 Plan of Care End Date 08/16/24 Therapeutic Interventions Therapeutic Interventions Balance Training,Canalithic Repositioning,Vestibular Rehabilitation Next Visit Focus/Plan Next Note Type Treatment Note Next Visit Plan Positional testing, CRM as indicated
--- NOTE | 2024-07-16 13:00 | PT.OPPOC ---
Physical, Occupational & Speech Therapy At [facility] Current Diagnoses Benign paroxysmal vertigo, left ear (07/16/24) Dizziness and giddiness (07/16/24) Visit Care Team Role Provider Type Vicenta Chowdhury MD Attending Provider Physician Family Provider Primary Care Provider Referring Provider Specialty: Family Practice Obstetrics Address: [address] [place] [address], [place] Email: [email or web address] Plan Of Care PT-OP-B Current Condition Start: 07/16/24 12:47 Freq: Status: Active Protocol: Document 07/16/24 10:45 DCW (Rec: 07/16/24 12:59 DCW [id number]) Current Condition History of Current Condition Onset Date 05/14/24 Current Complaints Positional dizziness History of Current Condition Pt is a 73 year old male complaining of a two month history of motion-induced vertigo, beginning following a fall off a stool which caused him to hit his head on the floor. Pt reports episodes last 30-60 seconds. Symptoms are provoked by bed mobility, looking up at stars, putting in eye drops, or quick head movements. Pt denies recent hearing changes, tinnitus, diplopia, dysarthria, discoordination, or decreased mentation/consciousness. Pt reports symptoms are waxing/ waning in nature. Pt denies hx of hyperlipidemia, diabetes, arrhythmia, seizure, migraines , back/neck problems, CVA, anxiety/panic disorders, depression, or excessive smoking or drinking. Treatment Goals Patient/Caregiver Goals eliminate dizziness PT-OP-T Assessment and Plan Start: 07/16/24 12:47 Freq: Status: Active Protocol: Document 07/16/24 10:45 DCW (Rec: 07/16/24 12:59 DCW [id number]) Physical Therapy Assessment Rehab Potential Rehabilitation Potential Excellent Evaluation Complexity Number of Personal Factors/Comorbidities 3 or More Number of Body Systems Impaired 4 or More Clinical Presentation at Evaluation Unstable Impairments Impairments Balance,Functional Activities, Functional Mobility,Vestibular Goals Two Impairment Positive left Tres-Hallpike Teacher Education Instructor Goal (LTG) Pt to present with negative positional testing bilaterally LTG Duration 08/16/24 One Impairment Pt experiences dizziness with positional changes Mcc Goal (LTG) Pt to report ability to perform bed mobility without vertiginous symptoms LTG Duration 08/16/24 Assessment Summary Assessment During left [place]-Hallpike test, pt complained of vertigo and demonstrated up-beating, torsional nystagmus lasting approximately 15 seconds, consistent with diagnosis of left-sided posterior canal BPPV, canalithiasis-type. Pt was treated with a left-sided modified Rikki maneuver. Pt complained of symptoms in the first and third position, which is normally indicative of a successful treatment. Further positional testing was negative. Pt was educated on BPPV, expectations for treatment, possible recurrence (BPPV has a ~50% recurrence rate in the five years following treatment), and post -Rikki restrictions. Pt to return in ~1 week for a follow -up appointment, and intermittently afterward as indicated for treatment of BPPV. Physical Therapy Plan Frequency and Duration Frequency of Treatment 2x/Week Plan of Care Start Date 07/16/24 Plan of Care End Date 08/16/24 Therapeutic Interventions Therapeutic Interventions Balance Training,Canalithic Repositioning,Vestibular Rehabilitation Next Visit Focus/Plan Next Note Type Treatment Note Next Visit Plan Positional testing, CRM as indicated Plan of Care Dates Plan of Care Start Date 07/16/24 Plan of Care End Date 08/16/24 Electronically Signed by: Toribio Ellis, PT 07/16/24 1300 If you are in agreement with this Plan of Care, please return a signed and dated copy. I have reviewed this Plan of Care and certify that the skilled therapy services above are required to meet the patient?s needs. Physician Signature Date Printed Name and Credentials Clinical Instructor Signature Printed Name and Credentials
--- NOTE | 2024-07-31 10:55 | PT.OTN ---
Current Diagnoses Benign paroxysmal vertigo, left ear (07/31/24) Dizziness and giddiness (07/31/24) Physical Therapy Treatment Note PT-OP-A Visit Information Start: 07/16/24 12:47 Freq: Status: Active Protocol: Document 07/31/24 10:30 DCW (Rec: 07/31/24 10:55 DCW [id number]) Out-Patient Physical Therapy Visit Information Visit Information Visit Type Treatment Note Visit Start Time 10:30 Visit Stop Time 10:50 Visit Number 2 Number of CABLE DRILLER Visits 0 Evaluation Information Evaluation Date 07/16/24 PT-OP-B Current Condition Start: 07/16/24 12:47 Freq: Status: Active Protocol: Document 07/16/24 10:45 DCW (Rec: 07/16/24 12:59 DCW [id number]) Current Condition History of Current Condition Onset Date 05/14/24 Current Complaints Positional dizziness History of Current Condition Pt is a 73 year old male complaining of a two month history of motion-induced vertigo, beginning following a fall off a stool which caused him to hit his head on the floor. Pt reports episodes last 30-60 seconds. Symptoms are provoked by bed mobility, looking up at stars, putting in eye drops, or quick head movements. Pt denies recent hearing changes, tinnitus, diplopia, dysarthria, discoordination, or decreased mentation/consciousness. Pt reports symptoms are waxing/ waning in nature. Pt denies hx of hyperlipidemia, diabetes, arrhythmia, seizure, migraines , back/neck problems, CVA, anxiety/panic disorders, depression, or excessive smoking or drinking. Treatment Goals Patient/Caregiver Goals eliminate dizziness PT-OP-C Subjective Start: 07/16/24 12:47 Freq: Status: Active Protocol: Document 07/31/24 10:30 DCW (Rec: 07/31/24 10:55 DCW [id number]) OP-PT Subjective Patient Comments Patient Comments Pt notes that he thought it was gone, but seems like it has been coming back a bit. Still mildly symptomatic with positional changes and looking up. PT-OP-O Vestibular Start: 07/16/24 12:47 Freq: Status: Active Protocol: Document 07/31/24 10:30 DCW (Rec: 07/31/24 10:55 DCW [id number]) Vestibular Assessment Positional Testing [place]-Hallpike Positive Left,Upbeating,< 60 Seconds PT-OP-Q Treatments Start: 07/16/24 12:47 Freq: Status: Active Protocol: Document 07/31/24 10:30 DCW (Rec: 07/31/24 10:55 DCW [id number]) Canalithic Repositioning BPPV Treatment Rikki Affected Canal(s) Left posterior Reps x2 Comments Modified Rikki PT-OP-T Assessment and Plan Start: 07/16/24 12:47 Freq: Status: Active Protocol: Document 07/31/24 10:30 DCW (Rec: 07/31/24 10:55 DCW [id number]) Physical Therapy Assessment Impairments Impairments Balance,Functional Activities, Functional Mobility,Vestibular Goals Two Impairment Positive left [place]-Hallpike Biomass Facilitator Goal (LTG) Pt to present with negative positional testing bilaterally LTG Duration 08/16/24 One Impairment Pt experiences dizziness with positional changes Biomass Facilitator Goal (LTG) Pt to report ability to perform bed mobility without vertiginous symptoms LTG Duration 08/16/24 Assessment Summary Assessment Pt again presented with positive left [place]-Hallpike with up-beating, torsional nystagmus lasting approximately 15 seconds. Modified left-sided Rikki was performed x2. Further testing was negative. Physical Therapy Plan Frequency and Duration Frequency of Treatment 2x/Week Plan of Care Start Date 07/16/24 Plan of Care End Date 08/16/24 Therapeutic Interventions Therapeutic Interventions Balance Training,Canalithic Repositioning,Vestibular Rehabilitation Next Visit Focus/Plan Next Note Type Treatment Note Next Visit Plan Positional testing, CRM as indicated
--- NOTE | 2024-08-07 11:05 | PT.OTN ---
Current Diagnoses Benign paroxysmal vertigo, left ear (08/07/24) Dizziness and giddiness (08/07/24) Physical Therapy Treatment Note PT-OP-A Visit Information Start: 07/16/24 12:47 Freq: Status: Active Protocol: Document 08/07/24 10:35 DCW (Rec: 08/07/24 11:05 DCW [id number]) Out-Patient Physical Therapy Visit Information Visit Information Visit Type Treatment Note Visit Start Time 10:35 Visit Stop Time 11:00 Visit Number 3 Number of DIRECTOR OF EXHIBITS Visits 0 Evaluation Information Evaluation Date 07/16/24 PT-OP-B Current Condition Start: 07/16/24 12:47 Freq: Status: Active Protocol: Document 07/16/24 10:45 DCW (Rec: 07/16/24 12:59 DCW [id number]) Current Condition History of Current Condition Onset Date 05/14/24 Current Complaints Positional dizziness History of Current Condition Pt is a 73 year old male complaining of a two month history of motion-induced vertigo, beginning following a fall off a stool which caused him to hit his head on the floor. Pt reports episodes last 30-60 seconds. Symptoms are provoked by bed mobility, looking up at stars, putting in eye drops, or quick head movements. Pt denies recent hearing changes, tinnitus, diplopia, dysarthria, discoordination, or decreased mentation/consciousness. Pt reports symptoms are waxing/ waning in nature. Pt denies hx of hyperlipidemia, diabetes, arrhythmia, seizure, migraines , back/neck problems, CVA, anxiety/panic disorders, depression, or excessive smoking or drinking. Treatment Goals Patient/Caregiver Goals eliminate dizziness PT-OP-C Subjective Start: 07/16/24 12:47 Freq: Status: Active Protocol: Document 08/07/24 10:35 DCW (Rec: 08/07/24 11:05 DCW [id number]) OP-PT Subjective Patient Comments Patient Comments Much better, actually, but still slightly symptomatic. PT-OP-O Vestibular Start: 07/16/24 12:47 Freq: Status: Active Protocol: Document 08/07/24 10:35 DCW (Rec: 08/07/24 11:05 DCW [id number]) Vestibular Assessment Positional Testing [place]-Hallpike Positive Left,Upbeating,< 60 Seconds PT-OP-Q Treatments Start: 07/16/24 12:47 Freq: Status: Active Protocol: Document 08/07/24 10:35 DCW (Rec: 08/07/24 11:05 DCW [id number]) Manual Therapy Treatment Other Other Manual Treatments Positional testing Canalithic Repositioning BPPV Treatment Rikki Affected Canal(s) Left posterior Reps x2 Comments Modified Rikki PT-OP-T Assessment and Plan Start: 07/16/24 12:47 Freq: Status: Active Protocol: Document 08/07/24 10:35 DCW (Rec: 08/07/24 11:05 DCW [id number]) Physical Therapy Assessment Impairments Impairments Balance,Functional Activities, Functional Mobility,Vestibular Goals Two Impairment Positive left [place]-Hallpike [facility] Goal (LTG) Pt to present with negative positional testing bilaterally LTG Duration 08/16/24 One Impairment Pt experiences dizziness with positional changes [facility] Goal (LTG) Pt to report ability to perform bed mobility without vertiginous symptoms LTG Duration 08/16/24 Assessment Summary Assessment Pt left [place]-Hallpike once again positive, however exhibiting comparatively milder symptoms today compared to last two visits. Pt tolerated modified Rikki well, and further testing was negative. Pt will be out of town visiting his son for the next three weeks, instructed to schedule follow-up upon return, in case symptoms persist, however pt informed he can cancel if no longer experiencing positional vertigo. Physical Therapy Plan Frequency and Duration Frequency of Treatment 2x/Week Plan of Care Start Date 07/16/24 Plan of Care End Date 08/16/24 Therapeutic Interventions Therapeutic Interventions Balance Training,Canalithic Repositioning,Vestibular Rehabilitation Next Visit Focus/Plan Next Note Type Treatment Note Next Visit Plan Positional testing, CRM as indicated
--- NOTE | 2024-09-14 14:59 | PT.OTN ---
Current Diagnoses Benign paroxysmal vertigo, left ear (09/14/24) Dizziness and giddiness (09/14/24) Physical Therapy Treatment Note PT-OP-A Visit Information Start: 07/16/24 12:47 Freq: Status: Active Protocol: Document 09/14/24 14:30 DCW (Rec: 09/14/24 14:59 DCW [id number]) Out-Patient Physical Therapy Visit Information Visit Information Visit Type Treatment Note Visit Start Time 14:30 Visit Stop Time 14:48 Visit Number 4 Number of GLASS LAMINATING OPERATOR Visits 0 Evaluation Information Evaluation Date 07/16/24 PT-OP-B Current Condition Start: 07/16/24 12:47 Freq: Status: Active Protocol: Document 07/16/24 10:45 DCW (Rec: 07/16/24 12:59 DCW [id number]) Current Condition History of Current Condition Onset Date 05/14/24 Current Complaints Positional dizziness History of Current Condition Pt is a 73 year old male complaining of a two month history of motion-induced vertigo, beginning following a fall off a stool which caused him to hit his head on the floor. Pt reports episodes last 30-60 seconds. Symptoms are provoked by bed mobility, looking up at stars, putting in eye drops, or quick head movements. Pt denies recent hearing changes, tinnitus, diplopia, dysarthria, discoordination, or decreased mentation/consciousness. Pt reports symptoms are waxing/ waning in nature. Pt denies hx of hyperlipidemia, diabetes, arrhythmia, seizure, migraines , back/neck problems, CVA, anxiety/panic disorders, depression, or excessive smoking or drinking. Treatment Goals Patient/Caregiver Goals eliminate dizziness PT-OP-C Subjective Start: 07/16/24 12:47 Freq: Status: Active Protocol: Document 09/14/24 14:30 DCW (Rec: 09/14/24 14:59 DCW [id number]) OP-PT Subjective Patient Comments Patient Comments Pt notes his dizziness is so much better, but admits it is still there. PT-OP-O Vestibular Start: 07/16/24 12:47 Freq: Status: Active Protocol: Document 09/14/24 14:30 DCW (Rec: 09/14/24 14:59 DCW [id number]) Vestibular Assessment Positional Testing [place]-Hallpike Positive Left,Upbeating,< 60 Seconds PT-OP-Q Treatments Start: 07/16/24 12:47 Freq: Status: Active Protocol: Document 09/14/24 14:30 DCW (Rec: 09/14/24 14:59 DCW [id number]) Manual Therapy Treatment Other Other Manual Treatments Positional testing Canalithic Repositioning BPPV Treatment Rikki Affected Canal(s) Left posterior Reps x2 Comments Modified Rikki PT-OP-T Assessment and Plan Start: 07/16/24 12:47 Freq: Status: Active Protocol: Document 09/14/24 14:30 DCW (Rec: 09/14/24 14:59 DCW [id number]) Physical Therapy Assessment Impairments Impairments Balance,Functional Activities, Functional Mobility,Vestibular Goals Two Impairment Positive left [place]-Hallpike Ore Buyer Goal (LTG) Pt to present with negative positional testing bilaterally LTG Duration 08/16/24 One Impairment Pt experiences dizziness with positional changes [facility] Goal (LTG) Pt to report ability to perform bed mobility without vertiginous symptoms LTG Duration 08/16/24 Assessment Summary Assessment Pt again testing positive with left Tres-Hallpike, symptoms much less severe than prior sessions. Left-sided modified Rikki was performed with symptoms in the first and third position. Follow-up testing was negative. Physical Therapy Plan Frequency and Duration Frequency of Treatment 1-2x/week Plan of Care Start Date 09/14/24 Plan of Care End Date 10/12/24 Therapeutic Interventions Therapeutic Interventions Balance Training,Canalithic Repositioning,Vestibular Rehabilitation Next Visit Focus/Plan Next Note Type Treatment Note Next Visit Plan Positional testing, CRM as indicated
--- NOTE | 2024-09-14 15:01 | PT.OPPN ---
Current Diagnoses Benign paroxysmal vertigo, left ear (09/14/24) Dizziness and giddiness (09/14/24) Physical Therapy Progress Note PT-OP-A Visit Information Start: 07/16/24 12:47 Freq: Status: Active Protocol: Document 09/14/24 14:30 DCW (Rec: 09/14/24 14:59 DCW [id number]) Out-Patient Physical Therapy Visit Information Visit Information Visit Type Treatment Note Visit Start Time 14:30 Visit Stop Time 14:48 Visit Number 4 Number of DIGITAL FORENSIC EXAMINER Visits 0 Evaluation Information Evaluation Date 07/16/24 PT-OP-B Current Condition Start: 07/16/24 12:47 Freq: Status: Active Protocol: Document 07/16/24 10:45 DCW (Rec: 07/16/24 12:59 DCW [id number]) Current Condition History of Current Condition Onset Date 05/14/24 Current Complaints Positional dizziness History of Current Condition Pt is a 73 year old male complaining of a two month history of motion-induced vertigo, beginning following a fall off a stool which caused him to hit his head on the floor. Pt reports episodes last 30-60 seconds. Symptoms are provoked by bed mobility, looking up at stars, putting in eye drops, or quick head movements. Pt denies recent hearing changes, tinnitus, diplopia, dysarthria, discoordination, or decreased mentation/consciousness. Pt reports symptoms are waxing/ waning in nature. Pt denies hx of hyperlipidemia, diabetes, arrhythmia, seizure, migraines , back/neck problems, CVA, anxiety/panic disorders, depression, or excessive smoking or drinking. Treatment Goals Patient/Caregiver Goals eliminate dizziness PT-OP-C Subjective Start: 07/16/24 12:47 Freq: Status: Active Protocol: Document 09/14/24 14:30 DCW (Rec: 09/14/24 14:59 DCW [id number]) OP-PT Subjective Patient Comments Patient Comments Pt notes his dizziness is so much better, but admits it is still there. PT-OP-O Vestibular Start: 07/16/24 12:47 Freq: Status: Active Protocol: Document 09/14/24 14:30 DCW (Rec: 09/14/24 14:59 DCW [id number]) Vestibular Assessment Positional Testing [place]-Hallpike Positive Left,Upbeating,< 60 Seconds PT-OP-T Assessment and Plan Start: 07/16/24 12:47 Freq: Status: Active Protocol: Document 09/14/24 14:30 DCW (Rec: 09/14/24 14:59 DCW [id number]) Physical Therapy Assessment Impairments Impairments Balance,Functional Activities, Functional Mobility,Vestibular Goals Two Impairment Positive left Tres-Hallpike Window Caser Goal (LTG) Pt to present with negative positional testing bilaterally LTG Duration 08/16/24 One Impairment Pt experiences dizziness with positional changes Window Caser Goal (LTG) Pt to report ability to perform bed mobility without vertiginous symptoms LTG Duration 08/16/24 Assessment Summary Assessment Pt again testing positive with left Tres-Hallpike, symptoms much less severe than prior sessions. Left-sided modified Rikki was performed with symptoms in the first and third position. Follow-up testing was negative. Physical Therapy Plan Frequency and Duration Frequency of Treatment 1-2x/week Plan of Care Start Date 09/14/24 Plan of Care End Date 10/12/24 Therapeutic Interventions Therapeutic Interventions Balance Training,Canalithic Repositioning,Vestibular Rehabilitation Next Visit Focus/Plan Next Note Type Treatment Note Next Visit Plan Positional testing, CRM as indicated
--- NOTE | 2024-09-14 15:01 | PT.OPPOC ---
Physical, Occupational & Speech Therapy At [facility] Current Diagnoses Benign paroxysmal vertigo, left ear (09/14/24) Dizziness and giddiness (09/14/24) Visit Care Team Role Provider Type Vicenta Chowdhury MD Attending Provider Physician Family Provider Primary Care Provider Referring Provider Specialty: Family Practice Obstetrics Address: [address] [place] [address], [facility] Email: [email or web address] Plan Of Care PT-OP-B Current Condition Start: 07/16/24 12:47 Freq: Status: Active Protocol: Document 07/16/24 10:45 DCW (Rec: 07/16/24 12:59 DCW [id number]) Current Condition History of Current Condition Onset Date 05/14/24 Current Complaints Positional dizziness History of Current Condition Pt is a 73 year old male complaining of a two month history of motion-induced vertigo, beginning following a fall off a stool which caused him to hit his head on the floor. Pt reports episodes last 30-60 seconds. Symptoms are provoked by bed mobility, looking up at stars, putting in eye drops, or quick head movements. Pt denies recent hearing changes, tinnitus, diplopia, dysarthria, discoordination, or decreased mentation/consciousness. Pt reports symptoms are waxing/ waning in nature. Pt denies hx of hyperlipidemia, diabetes, arrhythmia, seizure, migraines , back/neck problems, CVA, anxiety/panic disorders, depression, or excessive smoking or drinking. Treatment Goals Patient/Caregiver Goals eliminate dizziness PT-OP-T Assessment and Plan Start: 07/16/24 12:47 Freq: Status: Active Protocol: Document 09/14/24 14:30 DCW (Rec: 09/14/24 14:59 DCW [id number]) Physical Therapy Assessment Impairments Impairments Balance,Functional Activities, Functional Mobility,Vestibular Goals Two Impairment Positive left [place]-Hallpike [facility] Goal (LTG) Pt to present with negative positional testing bilaterally LTG Duration 08/16/24 One Impairment Pt experiences dizziness with positional changes Curing Bin Operator Goal (LTG) Pt to report ability to perform bed mobility without vertiginous symptoms LTG Duration 08/16/24 Assessment Summary Assessment Pt again testing positive with left Tres-Hallpike, symptoms much less severe than prior sessions. Left-sided modified Rikki was performed with symptoms in the first and third position. Follow-up testing was negative. Physical Therapy Plan Frequency and Duration Frequency of Treatment 1-2x/week Plan of Care Start Date 09/14/24 Plan of Care End Date 10/12/24 Therapeutic Interventions Therapeutic Interventions Balance Training,Canalithic Repositioning,Vestibular Rehabilitation Next Visit Focus/Plan Next Note Type Treatment Note Next Visit Plan Positional testing, CRM as indicated Plan of Care Dates Plan of Care Start Date 09/14/24 Plan of Care End Date 10/12/24 Electronically Signed by: Toribio Ellis, PT 09/14/24 9831 If you are in agreement with this Plan of Care, please return a signed and dated copy. I have reviewed this Plan of Care and certify that the skilled therapy services above are required to meet the patient?s needs. Physician Signature Date Printed Name and Credentials Clinical Instructor Signature Printed Name and Credentials
--- NOTE | 2024-09-30 11:19 | PT.OTN ---
Current Diagnoses Benign paroxysmal vertigo, left ear (09/30/24) Dizziness and giddiness (09/30/24) Physical Therapy Treatment Note PT-OP-A Visit Information Start: 07/16/24 12:47 Freq: Status: Active Protocol: Document 09/30/24 10:45 DCW (Rec: 09/30/24 11:19 DCW [id number]) Out-Patient Physical Therapy Visit Information Visit Information Visit Type Discharge Summary Visit Start Time 10:45 Visit Stop Time 11:13 Visit Number 5 Number of NETWORK SYSTEMS INTEGRATOR Visits 0 Evaluation Information Evaluation Date 07/16/24 PT-OP-B Current Condition Start: 07/16/24 12:47 Freq: Status: Active Protocol: Document 07/16/24 10:45 DCW (Rec: 07/16/24 12:59 DCW [id number]) Current Condition History of Current Condition Onset Date 05/14/24 Current Complaints Positional dizziness History of Current Condition Pt is a 73 year old male complaining of a two month history of motion-induced vertigo, beginning following a fall off a stool which caused him to hit his head on the floor. Pt reports episodes last 30-60 seconds. Symptoms are provoked by bed mobility, looking up at stars, putting in eye drops, or quick head movements. Pt denies recent hearing changes, tinnitus, diplopia, dysarthria, discoordination, or decreased mentation/consciousness. Pt reports symptoms are waxing/ waning in nature. Pt denies hx of hyperlipidemia, diabetes, arrhythmia, seizure, migraines , back/neck problems, CVA, anxiety/panic disorders, depression, or excessive smoking or drinking. Treatment Goals Patient/Caregiver Goals eliminate dizziness PT-OP-C Subjective Start: 07/16/24 12:47 Freq: Status: Active Protocol: Document 09/30/24 10:45 DCW (Rec: 09/30/24 11:19 DCW [id number]) OP-PT Subjective Patient Comments Patient Comments It's almost gone. PT-OP-O Vestibular Start: 07/16/24 12:47 Freq: Status: Active Protocol: Document 09/30/24 10:45 DCW (Rec: 09/30/24 11:19 DCW [id number]) Vestibular Assessment Positional Testing [place]-Hallpike Negative Left PT-OP-Q Treatments Start: 07/16/24 12:47 Freq: Status: Active Protocol: Document 09/30/24 10:45 DCW (Rec: 09/30/24 11:19 DCW [id number]) Manual Therapy Treatment Other Other Manual Treatments Positional testing Neuro Re-Education Treatment Other Activities DGI/FGA Comments DGI: FGA: Canalithic Repositioning BPPV Treatment Rikki Affected Canal(s) Left posterior Reps x1 Comments Modified Rikki PT-OP-T Assessment and Plan Start: 07/16/24 12:47 Freq: Status: Active Protocol: Document 09/30/24 10:45 DCW (Rec: 09/30/24 11:19 DCW [id number]) Physical Therapy Assessment Impairments Impairments Balance,Functional Activities, Functional Mobility,Vestibular Goals Two Impairment Positive left [place]-Hallpike Plant Packer Goal (LTG) Pt to present with negative positional testing bilaterally LTG Duration Met One Impairment Pt experiences dizziness with positional changes Plant Packer Goal (LTG) Pt to report ability to perform bed mobility without vertiginious symptoms LTG Duration Met Assessment Summary Assessment Positional testing negative today, pt no longer experiencing any ongoing BPPV symptoms. Pt did note feeling like his balance might be declining as he aged, so performed DGI and FGA. DGI score of and FGA score of indicate that pt does not have an increased risk of falling. Pt has met all goals , and is very happy with his current progress. Appropriate to discharge at this time. Physical Therapy Plan Frequency and Duration Frequency of Treatment 1-2x/week Plan of Care Start Date 09/14/24 Plan of Care End Date 10/12/24 Therapeutic Interventions Therapeutic Interventions Balance Training,Canalithic Repositioning,Vestibular Rehabilitation Next Visit Focus/Plan Next Note Type Treatment Note Next Visit Plan Positional testing, CRM as indicated
== END 2024-10-01 13:40 | disposition home or self-care (01) ==
LOC: PHYS 10:45
PROVIDERS: Family Provider Student in an Organized Health Care Education/Training Program; PCP Student in an Organized Health Care Education/Training Program; Referring Provider Student in an Organized Health Care Education/Training Program; Visit Provider Student in an Organized Health Care Education/Training Program
DX: H81.12 Benign paroxysmal vertigo, left ear (principal)
CPT/HCPCS: 95992; 97140; 97163; 97530

== ENCOUNTER → 2024-09-30 11:19 | Outpatient (CLI) | payer MEDICARE, OTHER, SELFPAY ==
[2024-09-30 12:25] LABS: BUN Creatinine Ratio 26.3 (6-22); Blood Urea Nitrogen 25 mg/dL (9-20); Calcium 9.4 mg/dL (8.4-10.2); Carbon Dioxide 29 mmol/L (22-32); Chloride 102 mmol/L (98-107); Estimated Glomerular Filt Rate > 60 mL/min (>60); Glucose 94 mg/dL (80-110); HEMOLYSIS < 15 (0-50); Potassium 3.9 mmol/L (3.4-5.1); Sodium 141 mmol/L (137-145)
== END ==
PROVIDERS: Family Provider Student in an Organized Health Care Education/Training Program; PCP Student in an Organized Health Care Education/Training Program; Referring Provider Internal Medicine Cardiovascular Disease; Visit Provider Internal Medicine Cardiovascular Disease
DX: I10 Essential (primary) hypertension (principal)
CPT/HCPCS: 36415; 80048

== ENCOUNTER 2024-12-15 09:06 | Emergency (ER) | payer MEDICARE, OTHER, SELFPAY ==
[2024-12-15] VITALS (14 sets, daily range): BP systolic 128–153; BP diastolic 69–79; PULSE 70–85; RESP 12–23; TEMP 36.5–36.6; O2SAT 91–100; BMI 32.1
--- NOTE | 2024-12-15 09:20 | DI.CT.S_ITS ---
PROCEDURE: CT ABDOMEN PELVIS WO CON INDICATIONS: Abdominal pain TECHNIQUE: Axial sections were acquired from the lung bases to the pubic symphysis. Coronal and sagittal reformats were performed. For radiation dose reduction, the following was used: automated exposure control, adjustment of mA and/or kV according to patient size. COMPARISON: [facility], CT, CT ABDOMEN PELVIS WO/W CON, 02/24/2024, 10:32. FINDINGS: Image quality: Diagnostic. Lower Chest: No significant findings. URINARY: Right Kidney: Punctate nonobstructing calcification. Simple cysts. Right Ureter: No hydroureter. Left Kidney: No stones or hydronephrosis. Left Ureter: No hydroureter. Bladder: Normal wall thickness. No stones. ABDOMEN: Liver: No contour-deforming solid mass. Gallbladder: No radiopaque gallstones or wall thickening. Biliary ducts: No biliary dilation. Pancreas: No ductal dilation. Spleen: Size is within normal limits. Adrenal Glands: No adrenal nodules. Stomach and Bowel: There is thickening within the distal descending/proximal sigmoid colon with numerous diverticula. No free air. No abscess. Peritoneum: No abnormal intraperitoneal fluid. No free air. Ventral Wall: No hernia. Abdominal Nodes: No enlarged retroperitoneal or mesenteric lymph nodes. Scattered subcentimeter lymph nodes are present adjacent to area of colonic thickening. These were present on the 02/24/2024 exam, although minimally more prominent on current study. Vessels: Aorta and inferior vena cava are normal in size. PELVIS: Pelvic Organs: Unremarkable. Pelvic Nodes: Unremarkable. Miscellaneous: Bilateral fat containing inguinal hernias are seen. Bones: Unremarkable. IMPRESSION: Thickening in the descending and proximal sigmoid colon with diverticula most suggestive of colitis. No abscess. As noted above, there are multiple adjacent subcentimeter lymph nodes which have been present since prior exam although minimally more prominent on current study. While this could be related to acute on chronic inflammation, thickened appearance of colon with adjacent lymph nodes can also be seen with malignancy. Recommend interval follow up after appropriate therapy to document resolution or colonoscopy as indicated. Dictated by: Millie Zabala M.D. on 12/15/2024 at 10:01 Approved by: Millie Zabala M.D. on 12/15/2024 at 10:05
--- NOTE | 2024-12-15 09:22 | ED.ABDPAIN ---
HPI - Abdominal Pain General Chief Complaint: Abdominal Pain Stated Complaint: Stabbing stomach pain N/V/D Time Seen by Provider: 12/15/24 09:10 History of Present Illness HPI narrative: Patient here for abdominal pain with nausea vomiting diarrhea. No chest pain no back pain. No syncope. Patient describes sharp bloated pain that started yesterday. Feels much better now after vomiting. Is generalized discomfort. Pain does not radiate. No prior history of heart attack but he did see his armature connector Dr. Perez, yesterday in the office for routine checkup for blood pressure medications EKG was done and was unremarkable he states. at bedside. Patient did have stress test last July 2024. And echocardiogram. Patient did see primary care 3 weeks ago and went up on tirzepatide from 5 mg weekly subcutaneous and is now 7.5 mg subcutaneous, last dose was 2 days ago. He has had problems with other weight loss medication injections last fall. He has been doing well with this current regimen/brand. Related Data Home Medications Medication Instructions Recorded Confirmed multivitamin (Multiple Vitamins 1 tab PO DAILY 02/20/24 11/26/24 tablet) losartan 50 mg tablet 100 mg PO DAILY 05/25/24 11/26/24 amlodipine 10 mg tablet 10 mg PO DAILY 11/26/24 11/26/24 hydrochlorothiazide 25 mg tablet mg PO 11/26/24 11/26/24 potassium chloride 20 mEq 20 meq PO DAILY 11/26/24 11/26/24 tablet,extended release(part/cryst) simvastatin 20 mg tablet 20 mg PO ONCE PM 11/26/24 11/26/24 Previous Rx's Medication Instructions Recorded albuterol sulfate 90 mcg/actuation 2 puff inhalation Q6H PRN 05/30/21 aerosol inhaler shortness of breath or wheezing #6.7 grams ipratropium bromide 42 mcg (0.06 1 spray intranasal QID #15 mL 01/29/22 %) nasal spray bupropion HCl 300 mg 24 hr tablet, 300 mg PO QAM #90 tabs 09/26/22 extended release cholecalciferol (vitamin D3) 25 25 mcg PO DAILY #90 caps 09/26/22 mcg (1,000 unit) capsule omeprazole 20 mg capsule,delayed 20 mg PO DAILY #90 caps 08/23/23 release cyclobenzaprine 5 mg tablet 5 mg PO BEDTIME PRN muscle spasm 04/24/24 #30 tabs fluticasone propionate 44 2 puff inhalation DAILY #10.6 grams 04/24/24 mcg/actuation HFA aerosol inhaler fluoxetine 20 mg tablet 40 mg (2 x 20 mg) PO DAILY #60 tabs 05/25/24 potassium chloride 20 mEq 20 meq PO DAILY #30 tabs 05/25/24 tablet,extended release metformin 500 mg tablet 500 mg PO DAILY #90 tabs 09/28/24 ondansetron 4 mg disintegrating 4 mg PO Q8H PRN for 09/28/24 tablet nausea/vomiting #30 tabs propranolol 120 mg capsule,24 120 mg PO BID #240 caps 11/04/24 hr,extended release tirzepatide (weight loss) 7.5 7.5 mg (0.5 mL) SUBCUT QWEEK #2 mL 11/26/24 mg/0.5 mL subcutaneous pen injector (Zepbound) Allergies Allergy/AdvReac Type Severity Reaction Status Date / Time iodine Allergy Mild hives Verified 11/26/24 14:56 pneumococcal vaccine Allergy Mild swelling Verified 12/15/24 09:30 all over peanut Allergy Verified 12/15/24 09:23 Sulfa (Sulfonamide AdvReac Mild dizziness, Verified 11/26/24 14:56 Antibiotics) nausea Review of Systems Review of Systems Narrative: GENERAL: Negative chills, fatigue, malaise, fever, positive sweats. HEENT: Negative sinus pain, ear pain, sore throat RESPIRATORY: Negative dyspnea, cough CARDIOVASCULAR: Negative chest pain, palpitations GASTROINTESTINAL: Positive diarrhea and vomiting, nausea, abdominal pain : Negative dysuria, frequency, hematuria MUSCULOSKELETAL: Negative muscle or bony pain SKIN: Negative rash, skin lesions NEUROLOGIC: Negative weakness, numbness ROS Unobtainable: All systems reviewed & are unremarkable except as noted in HPI and below Patient History Medical History (Updated 12/15/24 @ 13:11 by Stanley Mckenzie MD) History of recurrent urinary tract infection Prostatitis Secondhand smoke exposure Benign prostatic hyperplasia with lower urinary tract symptoms Recurrent urinary tract infection History of kidney stones History of diverticulitis History of depression Hx of skin cancer, basal cell Hx of chronic arthritis Hx of iron deficiency anemia Obesity (BMI 35.0-39.9 without comorbidity) History of UTI Urinary frequency Sigmoid diverticulosis Rosacea (~1984) Sleep apnea (~1996) Asthma (~1951) Allergies (~1951) PTSD (post-traumatic stress disorder) (~1969) Migraines (~1991) Back disorder (~1993) Spine pain, lumbar (~1991) Chronic back pain (~1991) Cervical spine disease (~1991) Vertigo (~2009) Recurrent sinusitis (~1959) Cataracts, bilateral (~2018) Kidney stones (~2000) GERD (gastroesophageal reflux disease) (~1969) Hypertension (~1968) Skin cancer (~2013) Internal bleeding hemorrhoids Surgical History (Updated 02/20/24 @ 09:39 by Christine Joiner RN) Hx of vasectomy Hx of circumcision Anesthesia History of hip surgery (~2018) Family History (Updated 02/20/24 @ 10:16 by Nieves King MA) Father No problems noted. Social History (Updated 02/20/24 @ 10:18 by Nieves King MA) marital status: number of children: 5 household members: significant other occupational status: previously employed Previous occupational history: retired [employer] Smoking Status: Never smoker alcohol intake: current substance use type: marijuana caffeine: Yes Type(s) of exercise: none alcohol intake frequency: holidays/special occasions only Exam Narrative Exam Narrative: GENERAL: in no distress, not toxic not dyspneic HEAD: Normocephalic. EYES: Pupils equal round ENT: Mucous membranes moist. NECK: Trachea midline. CARDIOVASCULAR: Regular rate and rhythm RESPIRATORY: Clear to auscultation. Breath sounds equal bilaterally. No wheezes, rales, or rhonchi. GASTROINTESTINAL: Abdomen soft, diffuse tenderness on palpation but no peritoneal signs no guarding no rebound. No pain out of portion exam. Bowel sounds are present. EXTREMITIES: No gross deformities. BACK: No flank tenderness. NEURO: AOx4. Clear speech SKIN: Warm and dry PSYCH: Not anxious, is cooperative Initial Vital Signs Initial Vital Signs: Vital Signs Temperature 97.7 F 12/15/24 09:15 Pulse Rate 85 12/15/24 09:15 Respiratory Rate 15 12/15/24 09:15 Blood Pressure 128/69 12/15/24 09:15 Pulse Oximetry 99 12/15/24 09:15 Oxygen Delivery Method Room Air 12/15/24 09:15 Course Orders Ordered: ED Orders 12/15/24 09:20 CT abdomen pelvis wo con Stat EKG-12 Lead Stat 12/15/24 09:36 Complete Blood Count AUTO DIFF Stat Comprehensive Metabolic Panel Stat Lipase Stat 12/15/24 09:45 Respiratory Panel (Film Array) Stat 12/15/24 10:25 GI Panel (Film Array) Stat Ictotest Urine Stat Urine Culture Stat Urine Microscopic Stat Discontinued Medications Sodium Chloride (Normal Saline 0.9%) 1,000 mls @ 1,000 mls/hr IV BOLUS ONE Stop: 12/15/24 10:19 Last Infusion: 12/15/24 10:33 Dose: Infused Documented By: Admin: 12/15/24 09:34 Dose: 1,000 mls/hr Documented By: PURNIMA Ondansetron HCl (Ondansetron 4 Mg/2 Ml Inj) 4 mg IV NOW ONE Stop: 12/15/24 09:21 Last Admin: 12/15/24 09:34 Dose: 4 mg Documented By: PURNIMA Vital Signs Vital signs: Vital Signs - 8 hr 12/15/24 09:15 12/15/24 09:21 12/15/24 09:21 Temperature 97.7 F Pulse Rate 85 Respiratory Rate 15 15 Blood Pressure 128/69 128/69 Pulse Oximetry 99 Oxygen Delivery Method Room Air 12/15/24 09:30 12/15/24 09:30 12/15/24 09:45 Temperature Pulse Rate 74 70 Respiratory Rate 20 16 Blood Pressure 135/75 Pulse Oximetry 100 100 Oxygen Delivery Method 12/15/24 09:45 12/15/24 10:00 12/15/24 10:00 Temperature Pulse Rate 75 Respiratory Rate 12 Blood Pressure 128/77 139/79 Pulse Oximetry 99 Oxygen Delivery Method 12/15/24 10:30 12/15/24 10:31 12/15/24 10:31 Temperature Pulse Rate 75 75 Respiratory Rate 13 15 Blood Pressure 137/74 Pulse Oximetry 97 96 Oxygen Delivery Method 12/15/24 10:59 12/15/24 10:59 12/15/24 11:00 Temperature Pulse Rate 72 73 Respiratory Rate 22 20 Blood Pressure 151/77 H Pulse Oximetry 99 99 Oxygen Delivery Method 12/15/24 11:00 12/15/24 11:30 12/15/24 11:30 Temperature Pulse Rate 78 Respiratory Rate 19 Blood Pressure 151/79 H 137/72 Pulse Oximetry 91 Oxygen Delivery Method 12/15/24 12:00 12/15/24 12:00 12/15/24 12:30 Temperature Pulse Rate 78 72 Respiratory Rate 18 23 Blood Pressure 143/74 H Pulse Oximetry 92 94 Oxygen Delivery Method 12/15/24 12:31 12/15/24 12:31 12/15/24 13:00 Temperature 98 F Pulse Rate 72 76 Respiratory Rate 19 14 Blood Pressure 153/79 H Pulse Oximetry 100 98 Oxygen Delivery Method 12/15/24 13:00 Temperature Pulse Rate Respiratory Rate Blood Pressure 147/75 H Pulse Oximetry Oxygen Delivery Method MDM - Abdominal Pain Lab Data 12/15/24 09:36 12/15/24 09:36 Labs: Lab Results 12/15/24 12/15/24 12/15/24 Range/Units 09:36 09:45 10:25 WBC 9.2 (4.5-11.0) X10^3/uL RBC 4.77 (4.5-5.9) X10^6/uL Hgb 14.7 (13.5-17.5) g/dL Hct 42.0 (41-53) % MCV 88.0 (80-100) fL MCH 30.7 (26-34) PG MCHC 34.9 (30-36) % RDW 14.6 (11.6-14.8) % Plt Count 224 (150-400) X10^3/uL Neut % (Auto) 84.1 H (50-75) % Lymph % (Auto) 8.7 L (25-40) % Cedar % (Auto) 5.9 (3-14) % Eos % (Auto) 1.0 L (2-4) % Baso % (Auto) 0.3 (0-2) % Neut # (Auto) 7700 H (8281-8655) /uL Lymph # (Auto) 800 L (4117-5151) /uL Cedar # (Auto) 500 (0-900) /uL Eos # (Auto) 100 (0-450) /uL Baso # (Auto) 0 (0-100) /uL Sodium 137 (137-145) mmol/L Potassium 3.3 L (3.4-5.1) mmol/L Chloride 106 (98-107) mmol/L Carbon Dioxide 25 (22-32) mmol/L BUN 25 H (9-20) mg/dL Creatinine 0.90 (0.66-1.25) mg/dL Estimated GFR > 60 (>60) mL/min BUN/Creatinine Ratio 27.8 H (6-22) Glucose 118 H (70-99) mg/dL Calcium 9.2 (8.4-10.2) mg/dL Total Bilirubin 1.0 (0.2-1.3) mg/dL AST 26 (17-59) IU/L ALT 24 (<50) IU/L Alkaline Phosphatase 119 (38-126) U/L Total Protein 7.7 (6.3-8.2) g/dL Albumin 4.7 (3.5-5.0) g/dL Globulin 3.0 (1.7-4.1) g/dL Albumin/Globulin Ratio 1.6 (1.0-2.8) Lipase 68 (23-300) U/L Ur Bilirubin Confirm Negative (Negative) Urine RBC 0-1/hpf (0-5/HPF) Urine WBC 1-5/hpf (0-5/HPF) Ur Squamous Epith Cells None seen (0-5/HPF) Urine Bacteria None seen (None) Ur Culture Indicated? Specimen cultured Vol Urine Centrifuged 10ml (spun) Stl C. cayetanensis PCR Not detected (Not Detect) Stool Rotavirus (PCR) Not detected (Not Detect) Stool Adenovirus (PCR) Not detected (Not Detect) Stool Astrovirus (PCR) Not detected (Not Detect) Stool Cryptosporidium PCR Not detected (Not Detect) Stl E.coli Shiga Tox PCR Not detected (Not Detect) St Sh/Enteroin Ecoli PCR Not detected (Not Detect) Stl Enterotoxigenic E PCR Not detected (Not Detect) Stool EPEC (PCR) Not detected (Not Detect) Stl E. histolytica PCR Not detected (Not Detect) Stool Giardia Lamblia PCR Not detected (Not Detect) Stool Sapovirus (PCR) Not detected (Not Detect) Stl P. shigelloides PCR Not detected (Not Detect) St Y.enterocolitica PCR Not detected (Not Detect) Stool Vibrio (PCR) Not detected (Not Detect) Stl Vibrio cholerae PCR Not detected (Not Detect) Stl Enteroaggr Ecoli PCR Not detected (Not Detect) Stl Norovirus GI/GII PCR Not detected (Not Detect) Chlamy pneumoniae PCR Not detected (Not Detect) Adenovirus (PCR) Not detected (Not Detect) B. pertussis DNA (PCR) Not detected (Not Detect) B.parapertussis DNA PCR Not detected (Not Detecte) Campylobacter (PCR) Not detected (Not Detect) C. difficile Tox (PCR) Not detected (Not Detect) Coronavirus OC43 (PCR) Not detected (Not Detect) Coronavirus HKU1 (PCR) Not detected (Not Detect) Coronavirus 229E (PCR) Not detected (Not Detect) SARS-CoV-2 (PCR) Not detected (Not Detecte) Coronavirus NL63 (PCR) Not detected (Not Detect) Human Metapneumovir PCR Not detected (Not Detect) Influenza Type A (PCR) Not detected (Not Detect) Influenza Type B (PCR) Not detected (Not Detect) M. pneumoniae (PCR) Not detected (Not Detect) Parainfluenza 1 (PCR) Not detected (Not Detect) Parainfluenza 2 (PCR) Not detected (Not Detect) Parainfluenza 3 (PCR) Not detected (Not Detect) Parainfluenza 4 (PCR) Not detected (Not Detect) RSV (PCR) Not detected (Not Detect) Entero/Rhino (PCR) Not detected (Not Detect) Salmonella (PCR) Not detected (Not Detect) Point of care testing: Urine Dip Bedside Urine Glucose Negative Bedside Urine Bilirubin + 1 Bedside Urine Ketone +/- 5 Urine Specific Colton 1.015 Bedside Urine Occult Blood - Negative Bedside Urine pH 6.0 Bedside Urine Protein +/- 15 Bedside Urine Urobilinogen +/- 1mg Bedside Urine Nitrite - Negative Bedside Urine Leukocytes + [address] scan - abdomen/pelvis: Radiologist's Impression: [address] [address] [address] Scan Report Signed Patient: Duke Ledbetter III MR#: [id number] : 1950 Acct:[id number] Age/Sex: 74 / M Date of Service: 12/15/24 Loc: ED Accession Number: [id number] Procedure: CT abdomen pelvis wo con Ordering Provider: Stanley Mckenzie MD PROCEDURE: CT ABDOMEN PELVIS WO CON INDICATIONS: Abdominal pain TECHNIQUE: Axial sections were acquired from the lung bases to the pubic symphysis. Coronal and sagittal reformats were performed. For radiation dose reduction, the following was used: automated exposure control, adjustment of mA and/or kV according to patient size. COMPARISON: [facility], CT, CT ABDOMEN PELVIS WO/W CON, 02/24/2024, 10:32. FINDINGS: Image quality: Diagnostic. Lower Chest: No significant findings. URINARY: Right Kidney: Punctate nonobstructing calcification. Simple cysts. Right Ureter: No hydroureter. Left Kidney: No stones or hydronephrosis. Left Ureter: No hydroureter. Bladder: Normal wall thickness. No stones. ABDOMEN: Liver: No contour-deforming solid mass. Gallbladder: No radiopaque gallstones or wall thickening. Biliary ducts: No biliary dilation. Pancreas: No ductal dilation. Spleen: Size is within normal limits. Adrenal Glands: No adrenal nodules. Stomach and Bowel: There is thickening within the distal descending/proximal sigmoid colon with numerous diverticula. No free air. No abscess. Peritoneum: No abnormal intraperitoneal fluid. No free air. Ventral Wall: No hernia. Abdominal Nodes: No enlarged retroperitoneal or mesenteric lymph nodes. Scattered subcentimeter lymph nodes are present adjacent to area of colonic thickening. These were present on the 02/24/2024 exam, although minimally more prominent on current study. Vessels: Aorta and inferior vena cava are normal in size. PELVIS: Pelvic Organs: Unremarkable. Pelvic Nodes: Unremarkable. Miscellaneous: Bilateral fat containing inguinal hernias are seen. Bones: Unremarkable. IMPRESSION: Thickening in the descending and proximal sigmoid colon with diverticula most suggestive of colitis. No abscess. As noted above, there are multiple adjacent subcentimeter lymph nodes which have been present since prior exam although minimally more prominent on current study. While this could be related to acute on chronic inflammation, thickened appearance of colon with adjacent lymph nodes can also be seen with malignancy. Recommend interval follow up after appropriate therapy to document resolution or colonoscopy as indicated. Dictated by: Millie Zabala M.D. on 12/15/2024 at 10:01 Approved by: Millie Zabala M.D. on 12/15/2024 at 10:05 [facility] Narrative Medical decision making narrative: Patient here for abdominal pain with nausea vomiting diarrhea. No chest pain no back pain. No syncope. Patient describes sharp bloated pain that started yesterday. Feels much better now after vomiting. Is generalized discomfort. Pain does not radiate. No prior history of heart attack but he did see his armature connector Dr. Perez, yesterday in the office for routine checkup for blood pressure medications EKG was done and was unremarkable he states. at bedside. Patient did have stress test last July 2024. And echocardiogram. Patient did see primary care 3 weeks ago and went up on tirzepatide from 5 mg weekly subcutaneous and is now 7.5 mg subcutaneous, last dose was 2 days ago. He has had problems with other weight loss medication injections last fall. He has been doing well with this current regimen/brand. After history and exam, CBC CMP troponin lipase CT abdomen pelvis Zofran normal saline respiratory panel [facility] Medical records reviewed: Stress test and echocardiogram from July 2024. Primary care office visit November 26, 2024 Differential considered: Includes but not limited to STEMI non-STEMI bowel obstruction colitis diverticulitis medication reaction UTI pancreatitis cholelithiasis cholecystitis appendicitis aortic dissection Lab Test results independently reviewed as above. Pertinent findings: GI panel and respiratory panel negative, WBC 9.2 sodium 137 potassium 3.3 BUN 25 creatinine 0.9 glucose 118 AST 26 ALT 24 lipase 68 Independently reviewed EKG normal sinus rhythm rate 77, there is artifact, patient is feeling tremulous. Imaging studies independently reviewed: CT abdomen pelvis shows descending and sigmoid thickening/colitis Consultations: None indicated at this time Re-evaluations: 1:08 p.m.. Patient feels much better. No nausea vomiting diarrhea. No abdominal pain. Reviewed results with patient and . They agree to stop the weight loss injection medication at this time. They will call provider, this could be the source of symptoms, colitis is nonspecific at this time. No prescriptions are indicated. He has nausea medication at home. Return precautions reviewed. Hydration instructions provided. They desire discharge home. Discussion: Appropriate for discharge home. Exam is reassuring. Return precautions reviewed with patient. Nontoxic at discharge. They will contact primary care regarding weight loss medication whether to continue. Patient feeling much better at time of discharge. He desires discharge home Diagnosis: Abdominal pain nausea vomiting diarrhea colitis Discharge Plan Departure Patient Disposition: Home Clinical Impression: Gastroenteritis, Colitis Instructions: DI for Abdominal Pain-Adult, DI for Diarrhea and Traveler's Diarrhea -- Adult, Nausea and Vomiting-Adult, DI for Colitis Activity Restrictions/Additional Instructions: Your exam and laboratory studies and imaging studies are otherwise reassuring. Colitis was seen on your CT scan imaging but is nonspecific at this time. No antibiotics or prescription is indicated. Please continue your home nausea medication. Please see your family doctor before resuming your weight loss medication injections. This could be the source of your symptoms today. Return if worse if any questions or concerns. Prescriptions: No Action fluoxetine 20 mg tablet 40 mg PO DAILY Qty: 60 0RF losartan 50 mg tablet 100 mg PO DAILY potassium chloride 20 mEq tablet extended release 20 meq PO DAILY Qty: 30 0RF ondansetron 4 mg tablet,disintegrating 4 mg PO Q8H PRN (Reason: for nausea/vomiting) Qty: 30 3RF metformin 500 mg tablet 500 mg PO DAILY Qty: 90 3RF hydrochlorothiazide 25 mg tablet PO simvastatin 20 mg tablet 20 mg PO ONCE PM amlodipine 10 mg tablet 10 mg PO DAILY potassium chloride 20 mEq tablet,ER particles/crystals 20 meq PO DAILY Zepbound 7.5 mg/0.5 mL pen injector 7.5 mg SUBCUT QWEEK Qty: 2 0RF fluticasone propionate 44 mcg/actuation HFA aerosol inhaler 2 puff inhalation DAILY Qty: 10.6 3RF Rx Instructions: administer with spacer cyclobenzaprine 5 mg tablet 5 mg PO BEDTIME PRN (Reason: muscle spasm) Qty: 30 3RF albuterol sulfate 90 mcg/actuation HFA aerosol inhaler 2 puff inhalation Q6H PRN (Reason: shortness of breath or wheezing) Qty: 6.7 11RF cholecalciferol (vitamin D3) 25 mcg (1,000 unit) capsule 25 mcg PO DAILY Qty: 90 3RF bupropion HCl 300 mg tablet extended release 24 hr 300 mg PO QAM Qty: 90 1RF omeprazole 20 mg capsule,delayed release(DR/EC) 20 mg PO DAILY Qty: 90 1RF propranolol 120 mg capsule,extended release 24hr 120 mg PO BID Qty: 240 3RF ipratropium bromide 42 mcg (0.06 %) spray,non-aerosol 1 spray intranasal QID Qty: 15 5RF Rx Instructions: administer into each nostril multivitamin [Multiple Vitamins] Tablet 1 tab PO DAILY Referrals: Vicenta Chowdhury MD [Primary Care Provider] - Stand Alone Forms: Patient Portal/API/Survey
--- NOTE | 2024-12-15 09:29 | EKG_ITS ---
[id number], [place] [address] Test Date: 2024-12-15 Pat Name: Duke Ledbetter III Department: Room: Gender: Male Open Claims Representative: JOLLY : 1950 Requested By: Order Number: [id number] Reading MD: Rolando Burch MD Measurements Intervals Delton Rate: 77 P: 25 DE: 180 QRS: -62 QRSD: 102 T: 38 QT: 446 QTc: 504 Interpretive Statements Normal sinus rhythm Left axis deviation Inferior infarct , age undetermined Prolonged QT NO PRIOR TRACING Electronically Signed On 12-15-2024 10:39:45 PDT by Rolando Burch MD
[2024-12-15] MEDS: SODIUM CHLORIDE 0.9% 1,000 ML 1000 ML IV (09:34)
[2024-12-15] MEDS: ONDANSETRON 4 MG/2 ML INJ IV (09:34)
[2024-12-15 09:44] LABS: Add Manual Diff / Slide Review NO; Basophils Absolute Auto 0 /uL (0-100); Basophils Percent Auto 0.3 % (0-2); Eosinophils Absolute Auto 100 /uL (0-450); Hemoglobin 14.7 g/dL (13.5-17.5); Lymphocytes Absolute Auto 800 /uL (1100-4500); Lymphocytes Percent Auto 8.7 % (25-40); Mean Corpuscular HGB Conc 34.9 % (30-36); Mean Corpuscular Hemoglobin 30.7 PG (26-34); Monocytes Absolute Auto 500 /uL (0-900); Monocytes Percent Auto 5.9 % (3-14); Neutrophils Absolute Auto 7700 /uL (1500-7000); Neutrophils Percent Auto 84.1 % (50-75); Platelet Count 224 X10^3/uL (150-400); Red Blood Cell Count 4.77 X10^6/uL (4.5-5.9); Red Cell Distribution Width 14.6 % (11.6-14.8); White Blood Cell Count 9.2 X10^3/uL (4.5-11.0)
[2024-12-15 09:55] LABS: Alanine Aminotransferase 24 IU/L (<50); Albumin 4.7 g/dL (3.5-5.0); Albumin Globulin Ratio 1.6 (1.0-2.8); Alkaline Phosphatase 119 U/L (38-126); Aspartate Aminotransferase 26 IU/L (17-59); BUN Creatinine Ratio 27.8 (6-22); Blood Urea Nitrogen 25 mg/dL (9-20); Calcium 9.2 mg/dL (8.4-10.2); Carbon Dioxide 25 mmol/L (22-32); Chloride 106 mmol/L (98-107); Estimated Glomerular Filt Rate > 60 mL/min (>60); Glucose 118 mg/dL (70-99); HEMOLYSIS < 15 (0-50); Lipase 68 U/L (23-300); Potassium 3.3 mmol/L (3.4-5.1); Sodium 137 mmol/L (137-145); Total Protein 7.7 g/dL (6.3-8.2)
[2024-12-15 10:46] LABS: Adenovirus Not Detected (Not Detect); B. parapertussis Not Detected (Not Detecte); Bordetella pertussis Not Detected (Not Detect); Chlamydophila pneumoniae Not Detected (Not Detect); Coronavirus 229E Not Detected (Not Detect); Coronavirus HKU1 Not Detected (Not Detect); Coronavirus NL 63 Not Detected (Not Detect); Coronavirus OC43 Not Detected (Not Detect); Human Metapneumovirus Not Detected (Not Detect); Human Rhinovirus/Enterovirus Not Detected (Not Detect); Influenza A Not Detected (Not Detect); Influenza B Not Detected (Not Detect); Mycoplasma pneumoniae Not Detected (Not Detect); Parainfluenza Virus 1 Not Detected (Not Detect); Parainfluenza Virus 2 Not Detected (Not Detect); Parainfluenza Virus 3 Not Detected (Not Detect); Parainfluenza Virus 4 Not Detected (Not Detect); Respiratory Syncytial Virus Not Detected (Not Detect); SARS- CoV-2 Not Detected (Not Detecte)
[2024-12-15 10:52] LABS: Ictotest Urine Negative (Negative); Urine Volume 10mL (spun)
[2024-12-15 10:55] LABS: Bacteria Urine None Seen; Culture Indicated Urine Specimen Cultured; RBC Urine 0-1/HPF (0-5/HPF); Squamous Epithelial Cell Urine None Seen (0-5/HPF); WBC Urine 1-5/HPF (0-5/HPF)
[2024-12-15 12:06] LABS: Adenovirus F 40/41 Not Detected (Not Detect); Astrovirus Not Detected (Not Detect); Campylobacter Not Detected (Not Detect); Clostridium difficile toxin AB Not Detected (Not Detect); Cryptosporidium Not Detected (Not Detect); Cyclospora cayetanensis Not Detected (Not Detect); Entamoeba histolytica Not Detected (Not Detect); Enteroaggregative E.coli Not Detected (Not Detect); Enteropathogenic E.coli Not Detected (Not Detect); Enterotoxigenic E.coli It/st Not Detected (Not Detect); Giardia lamblia Not Detected (Not Detect); Norovirus GI/GII Not Detected (Not Detect); Plesiomonsa shigelloides Not Detected (Not Detect); Rotavirus A Not Detected (Not Detect); Salmonella Not Detected (Not Detect); Sapovirus Not Detected (Not Detect); Shiga-like toxin-prod E.coli Not Detected (Not Detect); Shigella/Enteroinvasive E.coli Not Detected (Not Detect); Vibrio Not Detected (Not Detect); Vibrio cholerae Not Detected (Not Detect); Yersinia enterocolitica Not Detected (Not Detect)
== END 2024-12-15 13:20 | disposition home or self-care (01) ==
PROVIDERS: Emergency Provider Emergency Medicine; Family Provider Student in an Organized Health Care Education/Training Program; PCP Student in an Organized Health Care Education/Training Program
DX: K52.9 Noninfective gastroenteritis and colitis, unspecified (principal); R11.2 Nausea with vomiting, unspecified
CPT/HCPCS: 36415; 74176; 80053; 81003; 81015; 83690; 85025; 87086; 87507; 87633; 93005; 93010; 96361; 96374; 99284; J2405

== ENCOUNTER 2024-12-16 16:00 | Emergency (ER) | payer MEDICARE, OTHER, SELFPAY ==
[2024-12-16 16:03] VITALS: BP 121/72; PULSE 71; RESP 18; TEMP 36.4; O2SAT 100; BMI 32.1
[2024-12-16 16:28] LABS: Appearance Urine UA CLEAR
[2024-12-16 16:31] LABS: Color Urine UA ORANGE
[2024-12-16 16:34] LABS: Bacteria Urine Few (2-10); Culture Indicated Urine Specimen Cultured; Mucus Urine 1+ (Negative); RBC Urine 30-100/HPF (0-5/HPF); Squamous Epithelial Cell Urine 0-1 /HPF (0-5/HPF); Urine Volume 10mL (spun); WBC Urine 10-30/HPF (0-5/HPF)
--- NOTE | 2024-12-16 17:05 | ED.MALEGU ---
HPI - Male Genitourinary <Giulia Elizondo PA-C - Last Filed: 12/16/24 17:10> General Chief complaint: Urogenital-Male Stated complaint: penile bleeding Time Seen by Provider: 12/16/24 16:18 Source: patient Mode of arrival: Ambulatory History of Present Illness HPI Narrative: Mr. Anatoly CEE is a very pleasant 74-year-old male with a past medical history of HTN, kidney stones, recurrent UTI, prostatitis, BPH, diverticulitis, back pain who presents to the emergency department for blood coming out of his penis since prior to arrival. Patient states yesterday he was seen in the emergency department for abdominal pain, nausea, vomiting, diarrhea, was diagnosed with colitis and was feeling much better, significantly increased his hydration. However today he has been peeing more frequently and also having some burning. States that while he was upstairs he got the sudden urge to urinate and was going to have incontinence so to prevent this he firmly grasped his penile shaft to prevent urine from coming out as he walked down stairs to get to the bathroom. However when he got to the bathroom and urinated blood came out. He urinated a 2nd times since then and it was mainly clear but then blood started to come out towards the end of the urinary stream and he now has a little bit of blood that is oozing out of the urethral opening. He denies any abdominal pain, flank pain, fevers, chills, scrotal pain, testicular pain or pain with palpation of the penile shaft. He had absolutely no bleeding prior to the episode where he grasped his penile shaft. He is here with his who contributes to the history. States that he was treated with cephalexin for UTIs in the past. Related Data Home Medications Medication Instructions Recorded Confirmed multivitamin (Multiple Vitamins 1 tab PO DAILY 02/20/24 11/26/24 tablet) losartan 50 mg tablet 100 mg PO DAILY 05/25/24 11/26/24 amlodipine 10 mg tablet 10 mg PO DAILY 11/26/24 11/26/24 hydrochlorothiazide 25 mg tablet mg PO 11/26/24 11/26/24 potassium chloride 20 mEq 20 meq PO DAILY 11/26/24 11/26/24 tablet,extended release(part/cryst) simvastatin 20 mg tablet 20 mg PO ONCE PM 11/26/24 11/26/24 Previous Rx's Medication Instructions Recorded albuterol sulfate 90 mcg/actuation 2 puff inhalation Q6H PRN 05/30/21 aerosol inhaler shortness of breath or wheezing #6.7 grams ipratropium bromide 42 mcg (0.06 1 spray intranasal QID #15 mL 01/29/22 %) nasal spray bupropion HCl 300 mg 24 hr tablet, 300 mg PO QAM #90 tabs 09/26/22 extended release cholecalciferol (vitamin D3) 25 25 mcg PO DAILY #90 caps 09/26/22 mcg (1,000 unit) capsule omeprazole 20 mg capsule,delayed 20 mg PO DAILY #90 caps 08/23/23 release cyclobenzaprine 5 mg tablet 5 mg PO BEDTIME PRN muscle spasm 04/24/24 #30 tabs fluticasone propionate 44 2 puff inhalation DAILY #10.6 grams 04/24/24 mcg/actuation HFA aerosol inhaler fluoxetine 20 mg tablet 40 mg (2 x 20 mg) PO DAILY #60 tabs 05/25/24 potassium chloride 20 mEq 20 meq PO DAILY #30 tabs 05/25/24 tablet,extended release metformin 500 mg tablet 500 mg PO DAILY #90 tabs 09/28/24 ondansetron 4 mg disintegrating 4 mg PO Q8H PRN for 09/28/24 tablet nausea/vomiting #30 tabs propranolol 120 mg capsule,24 120 mg PO BID #240 caps 11/04/24 hr,extended release tirzepatide (weight loss) 7.5 7.5 mg (0.5 mL) SUBCUT QWEEK #2 mL 11/26/24 mg/0.5 mL subcutaneous pen injector (Zepbound) cephalexin 500 mg capsule 500 mg PO QID 7 days #28 caps 12/16/24 Allergies Allergy/AdvReac Type Severity Reaction Status Date / Time iodine Allergy Mild hives Verified 11/26/24 14:56 pneumococcal vaccine Allergy Mild swelling Verified 12/15/24 09:30 all over peanut Allergy Verified 12/15/24 09:23 Sulfa (Sulfonamide AdvReac Mild dizziness, Verified 11/26/24 14:56 Antibiotics) nausea Review of Systems <Giulia Elizondo PA-C - Last Filed: 12/16/24 17:10> Review of Systems ROS Unobtainable: All systems reviewed & are unremarkable except as noted in HPI and below Patient History <Giulia Elizondo PA-C - Last Filed: 12/16/24 17:10> Medical History History of recurrent urinary tract infection Prostatitis Secondhand smoke exposure Benign prostatic hyperplasia with lower urinary tract symptoms Recurrent urinary tract infection History of kidney stones History of diverticulitis History of depression Hx of skin cancer, basal cell Hx of chronic arthritis Hx of iron deficiency anemia Obesity (BMI 35.0-39.9 without comorbidity) History of UTI Urinary frequency Sigmoid diverticulosis Rosacea (~1984) Sleep apnea (~1996) Asthma (~1951) Allergies (~1951) PTSD (post-traumatic stress disorder) (~1969) Migraines (~1991) Back disorder (~1993) Spine pain, lumbar (~1991) Chronic back pain (~1991) Cervical spine disease (~1991) Vertigo (~2009) Recurrent sinusitis (~1959) Cataracts, bilateral (~2018) Kidney stones (~2000) GERD (gastroesophageal reflux disease) (~1969) Hypertension (~1968) Skin cancer (~2013) Internal bleeding hemorrhoids Surgical History Hx of vasectomy Hx of circumcision Anesthesia History of hip surgery (~2018) Family History Father No problems noted. Social History marital status: number of children: 5 household members: significant other occupational status: previously employed Previous occupational history: retired [employer] Smoking Status: Never smoker alcohol intake: current substance use type: marijuana caffeine: Yes Type(s) of exercise: none Smoking Status: Never smoker alcohol intake frequency: holidays/special occasions only Exam <Giulia Elizondo PA-C - Last Filed: 12/16/24 17:10> Narrative Exam Narrative: GENERAL: 74 year old patient appears stated age. Well-developed patient, in no acute distress. HEAD: Atraumatic. Normocephalic. CARDIOVASCULAR: Regular rate and rhythm. RESPIRATORY: ?Nonlabored respirations. ?Speaking in clear, full sentences. ?Clear to auscultation. Breath sounds equal bilaterally. No wheezes, rales, or rhonchi. ? GASTROINTESTINAL: Abdomen soft, non-tender, nondistended. Patient gave verbal consent for external exam. Normal circumcised penis with small amount of bright red blood that is able to be milked out of the urethra. No scrotal pain. No tenderness to palpation of penile shaft. EXTREMITIES: No edema or joint tenderness. BACK: No CVA tenderness NEURO: AOx3. ?Clear speech. ?Moves all 4 extremities appropriately. SKIN: No rash or erythema of visible areas Initial Vital Signs Initial Vital Signs: Vital Signs Temperature 97.6 F 12/16/24 16:03 Pulse Rate 71 12/16/24 16:03 Respiratory Rate 18 12/16/24 16:03 Blood Pressure 121/72 12/16/24 16:03 Pulse Oximetry 100 12/16/24 16:03 Oxygen Delivery Method Room Air 12/16/24 16:03 <Franny Sahu DO - Last Filed: 12/18/24 10:29> Initial Vital Signs Initial Vital Signs: Vital Signs Temperature 97.6 F 12/16/24 16:03 Pulse Rate 71 12/16/24 16:03 Respiratory Rate 18 12/16/24 16:03 Blood Pressure 121/72 12/16/24 16:03 Pulse Oximetry 100 12/16/24 16:03 Oxygen Delivery Method Room Air 12/16/24 16:03 Course <Giulia Elizondo PA-C - Last Filed: 12/16/24 17:10> Orders Ordered: ED Orders 12/16/24 16:15 Urinalysis and Microscopic Stat Urine Culture Stat Vital Signs Vital signs: Vital Signs - 8 hr 12/16/24 16:03 Temperature 97.6 F Pulse Rate 71 Respiratory Rate 18 Blood Pressure 121/72 Pulse Oximetry 100 Oxygen Delivery Method Room Air <DO Dada Washburn Last Filed: 12/18/24 10:29> Orders Ordered: ED Orders 12/16/24 16:15 Urinalysis and Microscopic Stat Urine Culture Stat Vital Signs Vital signs: Vital Signs - 8 hr 12/16/24 16:03 Temperature 97.6 F Pulse Rate 71 Respiratory Rate 18 Blood Pressure 121/72 Pulse Oximetry 100 Oxygen Delivery Method Room Air MDM - Male Genitourinary <CHRISTIE Keating Last Filed: 12/16/24 17:10> Medical Records Attestation: I reviewed the patient's medical records. Medical records narrative: Reviewed ED visit from yesterday Lab Data Labs: Lab Results 12/16/24 Range/Units 16:15 Urine Color [place] Urine Appearance Clear Urine pH TNP Ur Specific [place] TNP Urine Protein TNP Urine Glucose (UA) TNP Urine Ketones TNP Urine Occult Blood TNP Urine Nitrate TNP Urine Bilirubin TNP Urine Urobilinogen TNP Ur Leukocyte Esterase TNP Urine RBC 30-100/hpf H (0-5/HPF) Urine WBC 10-30/hpf H (0-5/HPF) Ur Squamous Epith Cells 0-1 /hpf (0-5/HPF) Urine Bacteria Few (2-10) H (None) Urine Mucus 1+ H (Negative) Ur Culture Indicated? Specimen cultured Vol Urine Centrifuged 10ml (spun) MDM Narrative Medical decision making narrative: 74-year-old male with a past medical history of HTN, kidney stones, recurrent UTI, prostatitis, BPH, diverticulitis, back pain who presents to the emergency department for blood coming out of his penis since prior to arrival Differential diagnosis includes but is not limited to urethral trauma, UTI, kidney stone, etc. On exam the patient is in no acute distress, nontoxic appearing, vital signs appropriate. Physical exam reveals abdomen soft, nontender, patient has had no diarrhea or vomiting since his ED visit yesterday. He has been having hematuria since firmly grasping his penile shaft earlier to prevent incontinence. He is scant amount of blood that is able to be expressed from the urethral on exam. He has having no abdominal pain or flank pain, history is consistent with urethral trauma. He did take AZO to help with dysuria + with blood, UA is incomplete but does reveal some white blood cells and bacteria, given patient's history and symptoms we will treat as possible UTI, urine culture pending. Urine culture from yesterday with no growth so far. Reviewed prior urine cultures which showed resistance to ciprofloxacin and levofloxacin, susceptible to cefazolin, patient reports successful treatment with Keflex in the past. Recommended antibiotics, urine culture pending, follow up with PCP, frequent urination and avoid holding bladder. Strict ED return precautions were discussed with the patient and his . I did also print out his scan from yesterday and recommended follow up imaging with his PCP. They verbalized understanding of all information agreeable to the plan. He is stable for discharge home. <Franny Sahu, DO - Last Filed: 12/18/24 10:29> Lab Data Labs: Lab Results 12/16/24 Range/Units 16:15 Urine Color [place] Urine Appearance Clear Urine pH TNP Ur Specific [place] TNP Urine Protein TNP Urine Glucose (UA) TNP Urine Ketones TNP Urine Occult Blood TNP Urine Nitrate TNP Urine Bilirubin TNP Urine Urobilinogen TNP Ur Leukocyte Esterase TNP Urine RBC 30-100/hpf H (0-5/HPF) Urine WBC 10-30/hpf H (0-5/HPF) Ur Squamous Epith Cells 0-1 /hpf (0-5/HPF) Urine Bacteria Few (2-10) H (None) Urine Mucus 1+ H (Negative) Ur Culture Indicated? Specimen cultured Vol Urine Centrifuged 10ml (spun) Discharge Plan Departure Patient Disposition: Home Clinical Impression: Trauma of urethra Qualifiers: Encounter type: initial encounter Qualified Code(s): S37.30XA - Unspecified injury of urethra, initial encounter Hematuria Qualifiers: Hematuria type: unspecified type Qualified Code(s): R31.9 - Hematuria, unspecified Instructions: DI for Urinary Tract Infection (UTI), DI for Hematuria Activity Restrictions/Additional Instructions: Dear Mr. Anatoly CEE, Thank you for coming to the emergency department. Today you were evaluated for blood coming out of the penis. I do suspect that you caused yourseld some local urethral trauma. Your urine test today did show some white blood cells and bacteria that are possible of an early infection, I will treat you with antibiotics however a urine culture is pending and you will be called if a change needs to be made. Please follow up with your primary care doctor as soon as possible. Please increase your hydration and urinate frequently, avoid holding your bladder. Return to the ER immediately if you develop increased bleeding, abdominal pain, nausea, vomiting, fevers, chills or any other concerns. Please follow up with your primary care doctor within the next 2-3 days for ER follow-up. (If you do not have a PCP you can call [phone]. ?to schedule an appointment with an [facility] Primary Care Provider) IF YOU DEVELOP ANY NEW OR WORSENING SYMPTOMS, RETURN TO THE ER! Please read the attached instructions, they highlight more specific treatments and interventions for you at home. Thank you for letting me participate in your care, Giulia Elizondo PA-C Prescriptions: New cephalexin 500 mg capsule 500 mg PO QID 7 Days Qty: 28 0RF No Action fluoxetine 20 mg tablet 40 mg PO DAILY Qty: 60 0RF losartan 50 mg tablet 100 mg PO DAILY potassium chloride 20 mEq tablet extended release 20 meq PO DAILY Qty: 30 0RF ondansetron 4 mg tablet,disintegrating 4 mg PO Q8H PRN (Reason: for nausea/vomiting) Qty: 30 3RF metformin 500 mg tablet 500 mg PO DAILY Qty: 90 3RF hydrochlorothiazide 25 mg tablet PO simvastatin 20 mg tablet 20 mg PO ONCE PM amlodipine 10 mg tablet 10 mg PO DAILY potassium chloride 20 mEq tablet,ER particles/crystals 20 meq PO DAILY Zepbound 7.5 mg/0.5 mL pen injector 7.5 mg SUBCUT QWEEK Qty: 2 0RF fluticasone propionate 44 mcg/actuation HFA aerosol inhaler 2 puff inhalation DAILY Qty: 10.6 3RF Rx Instructions: administer with spacer cyclobenzaprine 5 mg tablet 5 mg PO BEDTIME PRN (Reason: muscle spasm) Qty: 30 3RF albuterol sulfate 90 mcg/actuation HFA aerosol inhaler 2 puff inhalation Q6H PRN (Reason: shortness of breath or wheezing) Qty: 6.7 11RF cholecalciferol (vitamin D3) 25 mcg (1,000 unit) capsule 25 mcg PO DAILY Qty: 90 3RF bupropion HCl 300 mg tablet extended release 24 hr 300 mg PO QAM Qty: 90 1RF omeprazole 20 mg capsule,delayed release(DR/EC) 20 mg PO DAILY Qty: 90 1RF propranolol 120 mg capsule,extended release 24hr 120 mg PO BID Qty: 240 3RF ipratropium bromide 42 mcg (0.06 %) spray,non-aerosol 1 spray intranasal QID Qty: 15 5RF Rx Instructions: administer into each nostril multivitamin [Multiple Vitamins] Tablet 1 tab PO DAILY Referrals: Vicenta Chowdhury MD [Primary Care Provider] - Stand Alone Forms: Patient Portal/API/Survey ED Sign-out <Franny Sahu DO - Last Filed: 12/18/24 10:29> Cosign ED Attending Cosignature Attestation: I was immediately available in the department for consultation.
[2024-12-16 17:10] VITALS: BP 119/71; PULSE 67; RESP 16; O2SAT 100
== END 2024-12-16 17:08 | disposition home or self-care (01) ==
PROVIDERS: Emergency Provider Physician Assistant; Family Provider Student in an Organized Health Care Education/Training Program; PCP Student in an Organized Health Care Education/Training Program
DX: S37.30XA Unspecified injury of urethra, initial encounter (principal); R31.9 Hematuria, unspecified
CPT/HCPCS: 81001; 87086; 99281; 99282

== ENCOUNTER → 2025-01-05 15:44 | Outpatient (CLI) | payer MEDICARE, OTHER, SELFPAY ==
[2025-01-05 16:56] LABS: Blood Urea Nitrogen 16 mg/dL (9-20); Carbon Dioxide 29 mmol/L (22-32); Chloride 102 mmol/L (98-107); Estimated Glomerular Filt Rate > 60 mL/min (>60); Glucose 96 mg/dL (70-99); HEMOLYSIS < 15 (0-50); Sodium 140 mmol/L (137-145)
== END ==
PROVIDERS: Family Provider Student in an Organized Health Care Education/Training Program; PCP Student in an Organized Health Care Education/Training Program; Referring Provider Internal Medicine Cardiovascular Disease; Visit Provider Internal Medicine Cardiovascular Disease
DX: I10 Essential (primary) hypertension (principal)
CPT/HCPCS: 36415; 80048

== ENCOUNTER → 2025-02-08 13:50 | Outpatient (CLI) | payer MEDICARE, OTHER, SELFPAY ==
--- NOTE | 2025-02-08 13:53 | DI.CT.S_ITS ---
PROCEDURE: CT HEAD/BRAIN WO CON INDICATIONS: ESSENTIAL TREMOR TECHNIQUE: Noncontrast 4.5 mm thick angled axial sections acquired from the foramen magnum to the vertex, with coronal and sagittal reformats. For radiation dose reduction, the following was used: automated exposure control, adjustment of mA and/or kV according to patient size. COMPARISON: None. FINDINGS: Image quality: Diagnostic. Some images are limited by beam hardening artifacts most notably at the base of the skull. Ventricles and cortical sulci are moderately dilated commonly represents a pattern of atrophy. Mild areas of low-attenuation in the periventricular and deep white matter, commonly related to chronic small vessel ischemic changes. Diffuse mucoperiosteal thickening and opacification throughout the right maxillary sinus to the right ostiomeatal complex with osseous thickening of the maxillary sinus wall suggests chronic sinusitis. Mild mucoperiosteal thickening left frontal sinus measuring up to 5 mm thickness. The orbits, scalp, calvarium, mastoid air cells, middle ear cavities normal. No CT evidence of intracranial hemorrhage, mass lesion, mass effect, acute or subacute infarct. IMPRESSION: Opacification and osseous thickening right maxillary sinus as discussed above suspected chronic sinusitis. Atrophy and chronic white matter small vessel ischemic changes. No CT evidence of intracranial hemorrhage. If symptoms persist or worsen, or there is high clinical suspicion of intracranial abnormality, MRI could be performed. Dictated by: Julio Rdoas M.D. on 02/08/2025 at 15:53 Approved by: Julio Rodas M.D. on 02/08/2025 at 15:56
== END ==
PROVIDERS: Family Provider Student in an Organized Health Care Education/Training Program; PCP Student in an Organized Health Care Education/Training Program; Referring Provider Neurological Surgery; Visit Provider Neurological Surgery
DX: G25.0 Essential tremor (principal)
CPT/HCPCS: 70450

== ENCOUNTER → 2025-03-12 13:49 | Outpatient (CLI) | payer MEDICARE, OTHER, SELFPAY ==
[2025-03-12 18:44] LABS: Blood Urea Nitrogen 26 mg/dL (9-20); Calcium 8.8 mg/dL (8.4-10.2); Carbon Dioxide 29 mmol/L (22-32); Chloride 105 mmol/L (98-107); Estimated Glomerular Filt Rate > 60 mL/min (>60); Glucose 96 mg/dL (70-99); HEMOLYSIS 16 (0-50); Potassium 4.4 mmol/L (3.4-5.1); Sodium 142 mmol/L (137-145)
== END ==
PROVIDERS: Family Provider Student in an Organized Health Care Education/Training Program; PCP Student in an Organized Health Care Education/Training Program; Referring Provider Internal Medicine Cardiovascular Disease; Visit Provider Internal Medicine Cardiovascular Disease
DX: I50.22 Chronic systolic (congestive) heart failure (principal)
CPT/HCPCS: 36415; 80048

== ENCOUNTER → 2025-05-20 13:46 | Outpatient (CLI) | payer MEDICARE, OTHER, SELFPAY ==
[2025-05-20 14:38] LABS: Add Manual Diff / Slide Review NO; Hematocrit 41.0 % (41-53); Hemoglobin 14.0 g/dL (13.5-17.5); Lymphocytes Absolute Auto 1000 /uL (1100-4500); Mean Corpuscular HGB Conc 34.2 % (30-36); Mean Corpuscular Hemoglobin 30.1 PG (26-34); Mean Corpuscular Volume 88.1 fL (80-100); Platelet Count 197 X10^3/uL (150-400)
[2025-05-20 15:23] LABS: Alanine Aminotransferase 17 IU/L (<50); Albumin 4.2 g/dL (3.5-5.0); Albumin Globulin Ratio 1.4 (1.0-2.8); Alkaline Phosphatase 92 U/L (38-126); Blood Urea Nitrogen 18 mg/dL (9-20); Estimated Glomerular Filt Rate > 60 mL/min (>60); Globulin 2.9 g/dL (1.7-4.1); HEMOLYSIS 16 (0-50); Total Protein 7.1 g/dL (6.3-8.2)
[2025-05-20 15:24] LABS: Alanine Aminotransferase 17 IU/L (<50); Albumin 4.2 g/dL (3.5-5.0); Albumin Globulin Ratio 1.5 (1.0-2.8); Alkaline Phosphatase 90 U/L (38-126); Blood Urea Nitrogen 17 mg/dL (9-20); Carbon Dioxide 29 mmol/L (22-32); Chloride 102 mmol/L (98-107); Estimated Glomerular Filt Rate > 60 mL/min (>60); Globulin 2.8 g/dL (1.7-4.1); HEMOLYSIS < 15 (0-50); Potassium 3.9 mmol/L (3.4-5.1); Sodium 141 mmol/L (137-145); Total Protein 7.0 g/dL (6.3-8.2)
[2025-05-20 15:26] LABS: Calcium 8.7 mg/dL (8.4-10.2); Glucose 88 mg/dL (70-99)
== END ==
PROVIDERS: Family Provider Student in an Organized Health Care Education/Training Program; PCP Student in an Organized Health Care Education/Training Program; Referring Provider Physician Assistant Medical; Visit Provider Physician Assistant Medical
DX: Z01.818 Encounter for other preprocedural examination (principal); B35.1 Tinea unguium
CPT/HCPCS: 36415; 80053; 80076; 82565; 84520; 85025

== ENCOUNTER → 2025-06-01 15:18 | Outpatient (CLI) | payer MEDICARE, OTHER, SELFPAY ==
--- NOTE | 2025-06-01 15:20 | EKG_ITS ---
[facility] [address] [place] [address] Test Date: 2025-06-01 Pat Name: Duke Mingleplay JAYE Department: [facility] Room: Gender: Male Medical Case Manager: ED : 1950 Requested By: Order Number: [id number] Reading MD: Rolando Burch MD Measurements Intervals [place] Rate: 65 P: 16 OR: 204 QRS: -49 QRSD: 110 T: 20 QT: 446 QTc: 463 Interpretive Statements Normal sinus rhythm Left axis deviation Inferior infarct , age undetermined Electronically Signed On 06-13-2025 8:58:16 PST by Rolando Burch MD
[2025-06-01 16:39] LABS: Add Manual Diff / Slide Review NO; Hematocrit 42.8 % (41-53); Hemoglobin 14.8 g/dL (13.5-17.5); Lymphocytes Absolute Auto 1100 /uL (1100-4500); Mean Corpuscular HGB Conc 34.6 % (30-36); Mean Corpuscular Hemoglobin 30.3 PG (26-34); Mean Corpuscular Volume 87.5 fL (80-100); Platelet Count 195 X10^3/uL (150-400)
[2025-06-01 17:05] LABS: INR 1.1 (0.9-1.3); Prothrombin Time 12.0 SECONDS (9.4-12.5)
[2025-06-01 17:08] LABS: PTT Partial Thromboplastin Tim 32 SECONDS (25.1-36.5)
[2025-06-01 17:10] LABS: Blood Urea Nitrogen 15 mg/dL (9-20); Calcium 9.4 mg/dL (8.4-10.2); Carbon Dioxide 30 mmol/L (22-32); Chloride 100 mmol/L (98-107); Estimated Glomerular Filt Rate > 60 mL/min (>60); Glucose 94 mg/dL (70-99); HEMOLYSIS < 15 (0-50); Potassium 3.6 mmol/L (3.4-5.1); Sodium 139 mmol/L (137-145)
== END ==
PROVIDERS: Family Provider Student in an Organized Health Care Education/Training Program; PCP Student in an Organized Health Care Education/Training Program; Referring Provider Student in an Organized Health Care Education/Training Program; Visit Provider Student in an Organized Health Care Education/Training Program
DX: Z01.810 Encounter for preprocedural cardiovascular examination (principal); Z01.818 Encounter for other preprocedural examination
CPT/HCPCS: 36415; 80048; 85025; 85610; 85730; 93005

== ENCOUNTER → 2025-06-22 12:07 | Outpatient (CLI) | payer MEDICARE, OTHER, SELFPAY ==
[2025-06-22 13:00] LABS: COVID-19 CEPHEID 4-PLEX PCR Negative (Negative); Influenza A - CEPHEID Flu A NEGATIVE (NEGATIVE); Influenza B - CEPHEID Flu B NEGATIVE (NEGATIVE)
== END ==
PROVIDERS: Family Provider Student in an Organized Health Care Education/Training Program; PCP Student in an Organized Health Care Education/Training Program; Visit Provider Physician Assistant
DX: R35.0 Frequency of micturition (principal)
CPT/HCPCS: 87077; 87086; 87637